=== PATIENT | female | born 1965 | race African-American/Black ===

== ENCOUNTER 2024-10-06 10:56 | Outpatient (CLI) | payer BC, SELFPAY ==
--- NOTE | ~2024-10-06 | XR_ITS ---
Exam: X-ray abdomen/KUB one view. CLINICAL HISTORY: Bilateral kidney stone follow-up. Comparisons: None. TECHNIQUE: 2 images of the abdomen were obtained. FINDINGS: Lung bases are clear. Moderate amount of air and stool in nondilated large bowel. Small amount of air in nondilated small bowel. There is a 1.2 cm probable calcification projecting over the right mid abdomen likely in the right ki dney. There is a 0.8 cm probable calcification projecting of the left mid abdomen likely in the left kidney . There are a few less than 5 mm calcifications in the pelvis which may represent phleboliths, however, a distal ureteral stone or bladder stone or possible. No comparison studies are available. IMPRESSION: 1. Nonspecific, nonobstructive bowel gas pattern with a moderate amount of stool. 2.There is a 1.2 cm probable calcification projecting over the right mid abdomen likely in the right kidney. 3.There is a 0.8 cm probable calcification projecting of the left mid abdomen likely in the left kidn ey. 4.There are a few less than 5 mm calcifications in the pelvis which may represent phleboliths, howeve r, a distal ureteral stone or bladder stone or possible. No comparison studies are available. If continued concern, consider a renal stone CT for further assessment. Reviewed, dictated and finalized at location A. IMPRESSION: 1. Nonspecific, nonobstructive bowel gas pattern with a moderate amount of stoo l. 2.There is a 1.2 cm probable calcification projecting over the right mid abdome n likely in the right kidney. 3.There is a 0.8 cm probable calcification projecting of the left mid abdomen l ikely in the left kidney. 4.There are a few less than 5 mm calcifications in the pelvis which may represe nt phleboliths, however, a distal ureteral stone or bladder stone or possible. No comparison studies are available. If continued concern, consider a renal stone CT for further assessment.
--- OUTSIDE RECORDS SUMMARY | 2024-10-06 11:52 | XMS_ITS | Encounter Summary ---
Author Organization [facility] Address [address] [place] [address] Phone Care Team Providers Care Registry Np Name Role Phone Dianelys Hernandez MD Unavailable [phone] Dianelys Hernandez MD Primary Care Provider [phone] No, Physician Primary Care Provider [phone] Selvin Sims MD Primary Care Provider + No, Physician Primary Care Provider [phone] Selvin Sims MD Primary Care Provider + No, Physician Primary Care Provider [phone] Selvin Sims MD Primary Care Provider + Encounter Details Date Type Department Care Team (Late st [facility] Info) Description 05/16/2019 Ophth Exam [facility] Ophthalmology [address] [place] [address] [place] [id number] Kelsie Adam MD [address] [place] [address] Social History Tobacco Use Types Packs/Day Years Used Date Smoking Tobacco: Never Smokeless Tobacco: Never Alcohol Use Standard Drinks/Week Comments No 0 (1 standard drink = 0.6 oz pur e alcohol) PHQ-2 Answer Date Recorded PHQ-2 Score 6 10/15/2018 Comments No Sex and Gender Information Value Date Recorded Sex Assigned at Not on file 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 Unable to assess 05/19/2019 9:53 AM CDT documented as of this encounter Plan of Treatment Scheduled Procedures Name Priority Associated Diagnoses Date/Ti il COLONOSCOPY Open Access Colon cancer screening COLONOSCOPY Screening for colon cancer COLONOSCOPY Annual physical exam Screening for colon cancer documented as of this encounter Visit Diagnoses Not on filedocumented in this encounter Eye Exam Visual Acuity Right eye Left eye Near cc 20/20 20/20 -1 Pupils Dark Light React APD Right eye 4 2.5 Brisk None Left eye 4 2.5 Brisk None Visual Denis (Counting fingers) Right eye Left eye Full Full Extraocular Movement Right eye Left eye Full Full Neuro/Psych Oriented x3: Yes Mood/Affect: Normal Color Right eye Left eye Ishihara External Exam Right eye Left eye External Normal Normal Fundus Exam Right eye Left eye Disc Grade 0-1 edema Grade 2-3 edema with superior disc hemorrhage C/D Ratio 0.1 0.1 Undilated exam Care Teams Registry Np Relationship Specialty Start Date End Date Dianelys Hernandez MD [facility] [place] [address] PCP - General Internal Medicine 09/04/18 03/05/23 No, Physician PCP - General 03/06/23 05/29/23 Selvin Sims MD [facility] [place] [address] PCP - General Internal Medicine 05/30/23 09/16/23 No, Physician PCP - General 09/17/23 10/07/23 Selvin Sims MD [facility] [place] [address] PCP - General Internal Medicine 10/08/23 12/18/23 No, Physician PCP - General 12/19/23 12/25/23 Selvin Sims MD [address] [place], [place] [address] [place] [address] PCP - General Internal Medicine 12/26/23 Dianelys Hernandez MD [address] [place], [place] [address] [place] [address] 09/04/18 documented as of this encounter
--- OUTSIDE RECORDS SUMMARY | 2024-10-06 11:53 | XMS_ITS | Clinical Summary ---
Author Organization [facility] Address [address] [place] [address] Care Team Providers Care Account Manager Employee Benefits Name Role Phone Helen Gusman MD Primary Care Provider [phone] Carmen Mccallum MD Unavailable [phone] Nathan Romero MD Unavailable [phone] Source Comments [facility],non-owned Affiliates and Associated Physician Practices is amultiple site organization consisting of ambulatory clinics and hospital sitesin [place], [place], [place] and [place]. This disclosure is being madepursuant to the Care Everywhere program and may not contain all information available regarding this patient. Last updated 17.[facility] Allergies Active Allergy Reactions Criticality Noted Date Comments Oxaprozin Urticaria Medium 10/19/2010 Morphine 10/19/2010 Medications * Be aware that medications may not be up to date on this document. Alwaysverify current medications with the patient. lisinopril (PRINIVIL; ZESTRIL) 20 MG tablet Take 20 mg by mouth once daily. Active amLODIPine (NORVASC) 10 MG tablet Take 10 mg by mouth once daily. Active simvastatin (ZOCOR) 20 MG tablet Take 20 mg by mouth at bedtime. Active aspirin EC (ECOTRIN) 81 MG tablet Take 81 mg by mouth once daily. Active INDAPAMIDE PO Take by mouth once daily. Active Calcium Carb-Cholecalci ferol (CALCIUM 600 + D PO) Take by mouth 2 times daily. Active gabapentin (NEURONTIN) 100 MG capsule Take 1 Cap by mouth 3 times daily 60 Cap 0 5 Active traMADol (ULTRAM) 50 MG tablet Take 1 Tab by mouth every 4 hours as needed for Pain 20 Tab 0 5 Active Additional Information Patient not taking.Reported on 02/17/2019 predniSONE (DELTASONE) 20 MG tablet Take 2 Tabs by mouth once daily 10 Tab 0 5 Active naproxen (NAPROSYN) 500 MG tablet Take 1 Tab by mouth 2 times daily as needed for Pain 20 Tab 7 Active pantoprazole EC (PROTONIX) 40 MG tablet Take 1 tablet by mouth once daily 15 tablet 9 Active Active Problems Problem Noted Date Diagnosed Date Thyroid nodule 05/17/2014 Chest pain 10/19/2010 HTN (hypertension) Hyperlipidemia Family History Medical History Relation Name Comments Cancer Maternal Grandmother colon Heart Failure Maternal Grandmother Arthritis - Osteo Mother Cancer Mother lung Hypertension Mother Asthma Sister 1 Rashes/Skin Problems Sister 1 Hypertension Sister 2 Hypertension Sister 3 Relation Name Status Comments Father Maternal Grandmother Mother (Age 65) lung cance r Sister 1 Sister 2 Sister 3 Social History Tobacco Use Types Packs/Day Years Used Date Smoking Tobacco: Never Smokeless Tobacco: Never Alcohol Use Standard Drinks/Week Comments No 0 (1 standard drink = 0.6 oz pur e alcohol) Comments No Sex and Gender Information Value Date Recorded Sex Assigned at Not on file Legal Sex Female 7:45 AM 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 Gender Identity Not on file Sexual Orientation Not on file 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 Not on file Not on file Last Filed Vital Signs Vital Sign Reading Time Taken Comments Blood Pressure 125/80 02/17/2019 3:01 PM 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 Pulse 60 02/17/2019 3:13 PM 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 Temperature 36.4 C (97.5 F) 02/17/2019 10:13 AM 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 Respiratory Rate 16 02/17/2019 3:13 PM 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 Oxygen Saturation 99% 02/17/2019 3:13 PM 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 Inhaled Oxygen Concentration - - Weight 90.7 kg (200 lb) 02/17/2019 10:13 AM 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 Height 157.5 cm (5' 2) 02/17/2019 10:13 AM 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 Body Mass Index 36.58 02/17/2019 10:13 AM 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 Plan of Treatment Health Maintenance Due Date Last Done Comments COLOGUARD (AGES 45-75) - COLON CA SCREENING 1965 CT COLONOGRAPHY - COLON CA SCREENING 1965 FIT - COLON CA SCREENING 1965 FLEX SIG - COLON CA SCREENING 1965 MAMMOGRAM 1965 HIV SCREENING 1980 HEPATITIS C SCREENING 04/22/1983 DTAP/TDAP/TD VACCINES (1 - Tdap) 1984 HEPATITIS B VACCINE (1 of 3 - 19+ 3-dose series) 1984 PNEUMOCOCCAL VACCINE 50+ (1 of 1 - PCV) 04/27/2015 ZOSTER VACCINE (1 of 2) 04/27/2015 COVID-19 VACCINE (1 - ) 10/27/2023 DEPRESSION SCREENING 02/26/2024 INFLUENZA VACCINE (#1) 2024 9, 12/26/2017, 11/27/2017, Additional history exists COLON MONITORING 12/30/2024 12/30/2014, 06/2014, 12/30/2014 COLONOSCOPY - COLON CA SCREENING 12/30/2024 12/30/2014, 12/30/2014, 12/30/2014 Colorectal Cancer Screening 12/30/2024 HIB VACCINE Aged Out No longer eligi ble based on patient's age to complete this topic HPV VACCINE Aged Out No longer eligi ble based on patient's age to complete this topic MENINGOCOCCAL (Group B) VACCINE SHARED DECISION-MAKING Aged Out No longer eligible based on patient's age to complete this topic MENINGOCOCCAL GROUPS A/C/Y/W VACCINE Aged Out No longer eligible based on patient's age to complete this topic Procedures Procedure Name Priority Date/Time Associated Diagnosis Comments ENDOSCOPY, COLON, SCREENING Routine 12/30/2014 2:52 PM 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 from Last 3 Months or Most Recently Relevant to Health Maintenance Results * ENDOSCOPY, COLON, SCREENING (12/30/2014 2:52 PM 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) Report Endoscopy POC _ Patient Name: Jose Mckenzie Procedure Date: 12/30/2014 2:52 PM Date of : 1965 Admit Type: Outpatient Age: 49 Gender: Female Attending MD: Ramesh Lujan MD _ Procedure: Colonoscopy Indications: Screening for colorectal malignant neoplasm, Family history of colon cancer in a first-degree relative Providers: Ramesh Lujan MD (Doctor), Elizabeth Whitten RN, Jake Palacios, Veterinary Science Teacher Referring MD: Helen Gusman MD (Referring MD) Medicines: Monitored Anesthesia Care Complications: No immediate complications. _ Procedure: Pre-Anesthesia Assessment: - ASA Grade Assessment: II - A patient with mild systemic disease. - Airway Examination: Mallampati Class I (tonsillar pillars visualized). After I obtained informed consent, the scope was passed under direct vision. Throughout the procedure, the patient's blood pressure, pulse, and oxygen saturations were monitored continuously. The Colonoscope was introduced through the anus and advanced to the cecum, identified by appendiceal orifice and ileocecal valve. The colonoscopy was performed without difficulty. The patient tolerated the procedure well. The quality of the bowel preparation was good. Impression: - Diverticulosis. - One 6 mm polyp in the sigmoid colon. Resected and retrieved. Findings: Diverticula were found in the colon. A 6 mm polyp was found in the sigmoid colon. The polyp was sessile. The polyp was removed with a cold biopsy forceps. Resection and retrieval were complete. Estimated blood loss: none. _ Recommendation: - Repeat colonoscopy in 5-10 years for surveillance based on pathology results. Procedure Code(s): --- Professional --- 46255, Colonoscopy, flexible; with biopsy, single or multiple --- Technical --- 99142, Colonoscopy, flexible; with biopsy, single or multiple Diagnosis Code(s): --- Professional --- Z12.11, Encounter for screening for malignant neoplasm of colon K57.30, Diverticulosis of large intestine without perforation or abscess without bleeding D12.5, Benign neoplasm of sigmoid colon Z80.0, Family history of malignant neoplasm of digestive organs --- Technical --- Z12.11, Encounter for screening for malignant neoplasm of colon K57.30, Diverticulosis of large intestine without perforation or abscess without bleeding D12.5, Benign neoplasm of sigmoid colon Z80.0, Family history of malignant neoplasm of digestive organs CPT copyright 2014 [employer]. All rights reserved. The codes documented in this report are preliminary and upon certified coder review may be revised to meet current compliance requirements. Ramesh Lujan MD 12/30/2014 3:19 PM This report has been signed electronically. Number of Addenda: 0 Note Initiated On: 12/30/2014 2:52 PM [facility] ENDOSCOPY 12/30/2014 2:52 PM 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 us Ramesh Lujan MD GI PROCEDURE ORDERABLES Edited R esult - Final HC ENDOSCOPY from Last 3 Months or Most Recently Relevant to Health Maintenance Insurance [facility] Advance Directives * FULL RESUSCITATION (Latest Code Status on File) Date Activated Date Inactivated Comments 10/19/2010 11:59 PM 10/21/2010 5:46 AM Care Teams Account Manager Employee Benefits Relationship Specialty Start Date End Date Helen Gusman MD [address] [place] [address] PCP - General Internal Medicine 10/12/13 Carmen Mccallum MD [address] [facility], [address] [place] [id number] Endocrinology 05/17/14 Nathan Romero MD [address] [facility] [address] [place] [address] Cardiovascular Disease 02/14/15
--- OUTSIDE RECORDS SUMMARY | 2024-10-06 11:53 | XMS_ITS | Clinical Summary ---
Author Organization [facility] Address [address] [place] [id number] Care Team Providers Care Equipment Maint Tech Name Role Phone Dianelys Hernandez MD Unavailable [phone] Selvin Sims MD Primary Care Provider + Allergies Active Allergy Reactions Criticality Noted Date Comments Ud-Rn-[id number]-[id number] Morphine Rash Medium 03/11/2013 Rash Oxaprozin Rash Medium 03/11/2013 Rash Medications multivitamin capsule Take 1 capsule by mouth daily Active calcium carbonate-vitamin D3 1,250 mg (500 mg elemental)-125 unit per tablet Take 1 tablet by mouth daily Active aspirin 81 mg enteric coated tablet Take 1 tablet (81 mg total) by mouth daily 30 tablet 1 09/08/19 23 Active fluticasone propionate (FLONASE) 50 mcg/actuation nasal spray Administer 2 sprays into each nostril daily 3 each 4 03/21/19 24 Active dicyclomine (BENTYL) 10 mg capsule Take 1 capsule (10 mg total) by mouth 3 (three) times a day as needed (abd cramps) 60 capsule 09/01/19 24 Active estradioL (ESTRACE) 0.01 % (0.1 mg/gram) vaginal creamIndications:A trophic Vaginitis associated with Menopause Apply nightly to vagina for 1 week, then Saturday// Saturday 42.5 g 11/05/19 24 Active amLODIPine (NORVASC) 10 mg tabletIndications: Hypertension, essential Take 1 tablet (10 mg total) by mouth daily 90 tablet 3 12/30/19 24 025 Active cholecalciferol (VITAMIN D-3) 2000 unit tablet Take 1 tablet (2,000 Units total) by mouth daily 90 tablet 3 12/30/19 24 Active simvastatin (ZOCOR) 20 mg tabletIndications: Mixed hyperlipidemia Take 1 tablet (20 mg total) by mouth nightly 90 tablet 3 12/30/19 24 025 Active potassium chloride ER (KLOR-CON) 20 mEq CR tabletIndications: Hypokalemia Take 1 tablet (20 mEq total) by mouth 2 (two) times a day 180 tablet 3 12/30/19 24 Active irbesartan (AVAPRO) 300 mg tabletIndications: Hypertension, essential Take 1 tablet (300 mg total) by mouth nightly 90 tablet 3 12/30/19 24 Active acetaZOLAMIDE ER (DIAMOX SEQUAL) 500 mg capsule Take 1 capsule by mouth twice daily. 180 capsule 06/30/[address] (CYMBALTA) 20 mg capsule Take 1 capsule (20 mg total) by mouth daily 30 capsule 11 09/22/[address] (CYMBALTA) 20 mg capsule Take 1 capsule (20 mg total) by mouth daily 30 capsule 11 01/08/20 24 025 Discontin ued(Reord er) Active Problems Problem Noted Date Diagnosed Date Swelling of both lower extremities 06/17/2024 Assessment & Plan (06/17/2024 8:01 AM CDT): Acute, not well controlled Labs and imaging ordered today Discussed adequate water intake - Order pro BNP to assess cardiac function. - Order ultrasound of legs to rule out deep vein thrombosis. - Recommend use of compression stockings. Bilateral kidney stones 06/15/2024 Assessment & Plan (06/17/2024 8:01 AM CDT): Chronic Noted on imaging previously Discussed foods to avoid to prevent kidney stones based off of history of kidney stones Imaging ordered to evaluate further based on continued abdominal pain ED precautions reviewed with patient today Screening for colorectal cancer 08/14/2023 Sinus congestion 02/07/2023 Assessment & Plan (02/07/2023 9:39 AM SENIOR DENTIST): Started over the last weekend She has tried coricidin Take claritin/zyrtec/romero in the morning Flonase at bedtime Use the saline rinses/netipot in nose twice daily and as needed If symptoms increase or persist beyond 10 days, may need an antibiotic so reach out if no improvement Acute pain of right knee 07/19/2022 Assessment & Plan (08/26/2022 7:27 PM CDT): X-ray in ER on 06/22 showed: Tricompartmental degenerative changes of the right knee without definite evidence of acute displaced fracture or dislocation. There is a small suprapatellar joint effusion. Treatment consists of rest, ice, compression, and elevation. Medications used to treat arthritis include NSAIDs and analgesics such as ibuprofen and tylenol. Topical products such as voltaren gel and compression devices are also beneficial. Physical therapy will also be able to provide further guidance on treatments. If your pain persists, orthopedics can also advise and may suggest steroid injections or surgery. Referral to ortho F/u 6 wks Assessment & Plan (07/19/2022 8:37 AM CDT): X-ray in ER on 06/22 showed: Tricompartmental degenerative changes of the right knee without definite evidence of acute displaced fracture or dislocation. There is a small suprapatellar joint effusion. Treatment consists of rest, ice, compression, and elevation. Medications used to treat arthritis include NSAIDs and analgesics such as ibuprofen and tylenol. Topical products such as voltaren gel and compression devices are also beneficial. Physical therapy will also be able to provide further guidance on treatments. If your pain persists, orthopedics can also advise and may suggest steroid injections or surgery. Referral to ortho F/u 6 wks Subclinical hyperthyroidism 11/20/2021 Piriformis syndrome of left side 11/06/2021 Chronic left-sided low back pain without sciatic a 11/06/2021 Trochanteric bursitis of left hip 11/06/2021 Lumbar degenerative disc disease 04/04/2021 Assessment & Plan (04/04/2021 1:14 PM SENIOR DENTIST): She has been referred to ortho Symptoms fluctuate and flare and shoots into her left hip and down her leg She will be evaluated by ortho Class 2 severe obesity due t o excess calories with serious comorbidity and body mass index (BMI) of 36.0 to 36.9 in adult 12/15/2020 Assessment & Plan (06/17/2024 7:53 AM CDT): Encouraged healthy diet and exercise through low sodium, low carbohydrate diet, with exercise. Assessment & Plan (02/07/2023 8:50 AM SENIOR DENTIST): Encouraged healthy diet and exercise through low sodium, low carbohydrate diet, with exercise. Assessment & Plan (07/19/2022 8:32 AM CDT): Encouraged healthy diet and exercise through low sodium, low carbohydrate diet, with exercise. Assessment & Plan (10/26/2021 9:14 AM CDT): Encouraged healthy diet and exercise through low sodium, low carbohydrate diet, with exercise. Assessment & Plan (08/11/2021 11:34 AM CDT): Encouraged healthy diet and exercise through low sodium, low carbohydrate diet, with exercise. Assessment & Plan (04/04/2021 1:14 PM SENIOR DENTIST): Encouraged healthy diet and exercise through low sodium, low carbohydrate diet, with exercise. Assessment & Plan (12/15/2020 10:33 AM CDT): Encouraged healthy diet and exercise through low sodium, low carbohydrate diet, with exercise. AP (abdominal pain) 11/02/2020 Assessment & Plan (09/21/2024 9:25 AM CDT): Chronic, poorly controlled 2. Start duloxetine 20mg daily 3. Encourage GI follow up 4. 1 month follow up Assessment & Plan (11/02/2020 2:05 PM CDT): Etiology of abdominal pain is unclear. Of note blood was noted but no vaginal or rectal bleeding on exam and urinalysis does not indicate hematuria Persistent episodic lower abdominal cramipin need to consider gastroenteritis or colitis. Need to evaluate for image processing engineer etiology and recommend that she see her lumber material handler Migraine without aura and wi thout status migrainosus, not intractable 01/15/2020 Papilledema 09/14/2019 Pseudotumor cerebri 07/09/2019 Assessment & Plan (01/13/2021 10:14 AM SENIOR DENTIST): Doing well. No active edema today. OCT nerve stable avg RNFL thickness 109 OU today. Currently on diamox 1 g daily, which she is tolerating. Plan: -Continue diamox 1 g daily -Encouraged weight loss -Discussed headache hygiene -RTC 6 mo with OCT nerve OU, sooner PRN. Can likely taper diamox at next visit if stable and still no edema. Assessment & Plan (10/12/2019 12:43 PM CDT): Managed by ophthalmology Symptoms are stable on Diamox 1,000 mg twice daily Assessment & Plan (07/09/2019 4:43 PM CDT): Marixa Mckenzie presents for [facility] evaluation. She initially presented to her local [facility] in April 2019 due to headaches, TVOs and blurry vision, without pulsatile tinnitus or diplopia. She was then sent to the [facility] ED due to disc edema OS>>OD noted by her local [facility]. In the ED, MRI/MRV Brain and Orbits w wo contrast was negative for dural venous sinus thrombosis or intracranial mass. She was started on Diamox 500mg BID, which was later increased to 1000mg BID due to recurrent headache and TVOs. Lumbar puncture showed elevated opening pressure. She gained ~45lb in the last year. Today she continues to have TVOs without headache. She has some numbness/tingling of hands and feet but is otherwise tolerating Diamox. On examination today she has excellent VA, normal color vision, asymmetric optic disc edema OS>>OD. OCT optic nerve shows bilateral disc edema OS>>OD, normal OCT macula without macular edema, normal GCC analysis. HVF today demonstrate enlarged blind spot OS, normal OD. Review of neuroimaging from April 2019 shows posterior globe flattening, empty sella, optic nerve sheath tortuosity, without significant dural venous sinus stenosis. Thought it is less typical for post-menopausal women to have IIH, features favoring this diagnosis include gender, body habitus, and her otherwise normal examination and imaging. Recommend increasing dose of Diamox to 1500mg BID since she has persistent edema. She was counseled that in most cases, weight loss in combination with Diamox results in greatest success of preventing vision loss. Recommended that she discuss options/strategies with her PCP and consider a program like Weight Watchers. Return in 8-10 weeks with HVF 24-2, OCT ON, OCT macula with GCC analysis Depression 05/25/2019 Assessment & Plan (10/12/2019 12:00 PM CDT): Information provided on depression Symptoms are stable on no medication Assessment & Plan (07/01/2019 4:38 PM CDT): She never started lexapro but is not feeling depressed. Symptoms controlled on no medication. Assessment & Plan (05/25/2019 12:18 PM CDT): 10 mg Lexapro will be started Information provided on stress/anxiety/depression Will reassess in 4-6 weeks. Gastroesophageal reflux disease without esophagi tis 05/25/2019 Assessment & Plan (10/12/2019 12:47 PM CDT): Symptoms improve with pantoprazole Medication refilled today Encourage low acidic diet Assessment & Plan (05/25/2019 12:09 PM CDT): Begin taking Prevacid and follow up if no relief of symptoms Decrease high acidic foods like dark soda, coffee, hot sauce, fried foods, tomato based products, peppermint, chocolate, cucumber seeds. 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 MRI brain w,w/o and MRV unremarkable, and was found to have elevated ICP on lumbar puncture. Patient was discharged on acetazolamide 500 mg bid. She has an upcoming appointment in neuro-ophthalmology with Dr. Ogden on 05/18/19. Likely etiology of spironolactone side effect, but cannot r/o IIH. Today with asymmetric optic nerve edema OS>>OD, with superior disc hemorrhage OS. Disc photos taken today for documentation. Central vision intact, no APD (checked by electronic development technician, patient dilated when I saw her). No headaches or pulsatile tinnitus currently. Patient endorses some mild tingling of her feet when specifically asked. Plan to continue diamox 500mg bid, and patient will follow up as scheduled on 05/18/[address] Ogden with HVF and OCT. Vitamin D deficiency 01/02/2019 Assessment & Plan (12/27/2023 2:57 PM CDT): 1. Chronic, poorly controlled at last check 2. Will continue vitamin-D supplementation and repeat vitamin-D Assessment & Plan (01/02/2019 11:03 AM SENIOR DENTIST): The results from your labs show low Vitamin D levels. Please also increase foods rich in vitamin D in your diet such as milk, almond milk, cheese, yogurt, salmon and mushrooms. Please begin taking an over the counter vitamin D 2,000 iu supplement daily. 10-15 minutes of sunlight daily also aids in vitamin D production. Hypokalemia 01/02/2019 Assessment & Plan (12/27/2023 2:56 PM CDT): 1. Chronic, worsening at last check 2. Will repeat potassium today and continue her current supplementation Assessment & Plan (08/11/2021 1:17 PM CDT): She has been stable on 20 mEq K+ daily BMP ordered today Assessment & Plan (12/15/2020 10:53 AM CDT): Was increased to 1 tablet three times a day for serum potassium 2.9 at appt in October but she has been taking 2 tablets three times a day by mistake Need to check potassium level today Decrease amount of potassium supplement to 1 tablet three time daily Assessment & Plan (10/20/2020 10:15 AM CDT): On 20 mEq BID Labs ordered today Assessment & Plan (05/25/2019 12:17 PM CDT): BMP ordered today WNL April 2019 Assessment & Plan (01/02/2019 10:59 AM SENIOR DENTIST): Will recheck level today Hypertension, essential 01/02/2019 Assessment & Plan (06/17/2024 7:58 AM CDT): Chronic, elevated today Plan to continue to check blood pressure readings at home - Education regarding HTN urgency and emergency reviewed today and importance of seeking immediate medical attention - if blood pressure readings remain >130/80, plan to adjust medication accordingly, possible referral to Dr Fuller for further eval and intervention of hypertension Assessment & Plan (05/30/2023 9:35 AM CDT): SBP marginal today. She has not taken her medications today. Her BP is reflective of that. Continue Norvasc 10 mg daily and irbesartan 300 mg daily. I asked that she monitor this at home and let us know if her BP is over 140 on her medications. Assessment & Plan (02/07/2023 1:11 PM SENIOR DENTIST): On diamox 500 mg once daily, amlodipine 10 mg, irbesartan 300 mg daily She didn't continue metoprolol XL 25 mg because she ran out BP stable without metoprolol Continue current treatment regimen Dietary sodium restriction Weight loss Regular aerobic exercise F/u 3 mo Assessment & Plan (08/23/2022 10:58 AM CDT): On diamox 500 mg now once daily, amlodipine 10 mg, irbesartan 300 mg daily BP elevated last couple of appointments Continue current treatment regimen Dietary sodium restriction Weight loss Regular aerobic exercise Continue current medications and add metoprolol XL 25 mg F/u 1 mo Assessment & Plan (07/22/2022 1:13 PM CDT): On diamox 500 mg now once daily, amlodipine 10 mg, irbesartan 300 mg daily BP elevated but also did not take her medications yet today and she would have taken them by now so no medication adjustments will be made Continue current treatment regimen Dietary sodium restriction Weight loss Regular aerobic exercise Continue current medications F/u 1 mo Assessment & Plan (01/25/2022 9:26 AM SENIOR DENTIST): On diamox 500 mg now once daily, amlodipine 10 mg, irbesartan 150 mg daily BP has increased when she discontinued her diamox and she started retaining more fluid so she recently restarted back to taking it once a day three days ago BP not well controlled Increase irbesartan to 300 mg daily, continue amlodipine 10 mg daily and diamox 500 mg daily Continue current treatment regimen Dietary sodium restriction Weight loss Regular aerobic exercise Continue current medications Blood pressure will be reassessed one month Assessment & Plan (10/26/2021 9:15 AM CDT): On diamox 500 mg BID, amlodipine 10 mg, irbesartan 150 mg daily Hypertension is improving with treatment Continue current treatment regimen Dietary sodium restriction Weight loss Regular aerobic exercise Continue current medications Blood pressure will be reassessed at the next regular appointment Assessment & Plan (08/11/2021 11:28 AM CDT): On diamox 500 mg BID, amlodipine 10 mg, irbesartan 150 mg daily Hypertension is improving with treatment Continue current treatment regimen Dietary sodium restriction Weight loss Regular aerobic exercise Continue current medications Blood pressure will be reassessed at the next regular appointment Assessment & Plan (04/04/2021 1:00 PM SENIOR DENTIST): On diamox 500 mg BID, amlodipine 10 mg, irbesartan 150 mg daily Hypertension is improving with treatment Continue current treatment regimen Dietary sodium restriction Weight loss Regular aerobic exercise Continue current medications Blood pressure will be reassessed at the next regular appointment Assessment & Plan (12/15/2020 10:52 AM CDT): On diamox 500 mg bid, amlodipine 5 mg, and irbesartan 150 mg daily BP elevated today on 3 readings and 150/100 Increase amlodipine to 10 mg daily, continue diamox and irbesartan Continue current treatment regimen Dietary sodium restriction Weight loss Regular aerobic exercise Blood pressure will be reassessed one month Assessment & Plan (07/19/2020 5:31 PM CDT): Hypertension has improved Continue low salt diet Encourage aerobic exercise Current medication will be continued Will reassess at the next office visit Assessment & Plan (03/22/2020 4:41 PM SENIOR DENTIST): Hypertension has improved with lifestyle changes and medication Blood Pressure Follow-up: Lifestyle modifications education provided on sodium reduction, increase physical activity and weight reduction Current medication will be continued Will reassess at the next office visit. Assessment & Plan (10/12/2019 12:44 PM CDT): BP is increased Add Amlodipine 5 mg to Olmesartan 40 mg Dietary sodium restriction Weight loss Regular aerobic exercise Blood pressure will be reassessed one month Assessment & Plan (07/10/2019 1:41 PM CDT): Hypertension is improving with treatment Continue current treatment regimen Dietary sodium restriction Weight loss Regular aerobic exercise Continue current medications Blood pressure will be reassessed at the next regular appointment Assessment & Plan (07/01/2019 4:39 PM CDT): Home bp reading elevated Dietary sodium restriction Weight loss Regular aerobic exercise BP will be assessed in office Will make earliest appt and complete annual PE, have pt bring home bp cuff Assessment & Plan (05/25/2019 12:02 PM CDT): BP is elevated Increase lisinopril to 40 mg Dietary sodium restriction Weight loss Regular aerobic exercise Blood pressure will be reassessed 1 mo Assessment & Plan (01/02/2019 11:02 AM SENIOR DENTIST): Hypertension is improving with treatment Continue current treatment regimen Dietary sodium restriction Weight loss Regular aerobic exercise Continue current medications Blood pressure will be reassessed at the next regular appointment History of hysterectomy 03/03/2018 Assessment & Plan (03/03/2018 10:08 AM SENIOR DENTIST): Dr. Elizabeth Nicholson is her OBGYN and she sees her bi-yearly. Chronic left hip pain 03/03/2018 Assessment & Plan (04/04/2021 1:01 PM SENIOR DENTIST): She has been referred to ortho Currently, she is taking flexeril 5 mg TID PRN and ibuprofen Information has been provided for ortho and recommend PT also Assessment & Plan (12/15/2020 2:17 PM CDT): Has been referred to ortho in the past Currently taking 7.5 mg meloxicam and tylenol daily Pain worsens with activity and can get up to an 8/10 Would like to see ortho before getting PT Referral to ortho Assessment & Plan (03/03/2018 11:10 AM SENIOR DENTIST): X-ray ordered today Referral to ortho Mixed hyperlipidemia 03/03/2018 Assessment & Plan (06/17/2024 7:59 AM CDT): Chronic, stable Continue simvastatin Assessment & Plan (02/07/2023 8:52 AM SENIOR DENTIST): On simvastatin 20 mg daily Recommend low fat, low cholesterol diet such as the mediterranean diet Recommend regular physical activity such as brisk walking at least 30 minutes 5 days per week Lipid levels at goal at last check Continue pharmacotherapy as ordered Lipid levels will be reassessed in 4 mo Assessment & Plan (07/19/2022 8:32 AM CDT): On simvastatin 20 mg daily Recommend low fat, low cholesterol diet such as the mediterranean diet Recommend regular physical activity such as brisk walking at least 30 minutes 5 days per week Lipid levels at goal at last check Continue pharmacotherapy as ordered Lipid levels will be reassessed in 4 mo Assessment & Plan (10/26/2021 9:14 AM CDT): On simvastatin 20 mg daily Recommend low fat, low cholesterol diet such as the mediterranean diet Recommend regular physical activity such as brisk walking at least 30 minutes 5 days per week Lipid levels at goal at last check Continue pharmacotherapy as ordered Lipid levels will be reassessed in 4 mo Assessment & Plan (08/11/2021 11:35 AM CDT): On simvastatin 20 mg daily Recommend low fat, low cholesterol diet such as the mediterranean diet Recommend regular physical activity such as brisk walking at least 30 minutes 5 days per week Lipid levels at goal at last check Continue pharmacotherapy as ordered Lipid levels will be reassessed in 4 mo Assessment & Plan (04/04/2021 1:00 PM SENIOR DENTIST): On simvastatin 20 mg daily Recommend low fat, low cholesterol diet such as the mediterranean diet Recommend regular physical activity such as brisk walking at least 30 minutes 5 days per week Lipid levels ordered Continue pharmacotherapy as ordered Lipid levels will be reassessed in 4 mo Assessment & Plan (12/15/2020 10:10 AM CDT): On simvastatin 20 mg daily Lipid levels normal on 10/20 Recommend low fat, low cholesterol diet such as the mediterranean diet Recommend regular physical activity such as brisk walking at least 30 minutes 5 days per week Continue pharmacotherapy as ordered Lipid levels will be reassessed in 4 mo Assessment & Plan (10/20/2020 10:15 AM CDT): Recommend low fat, low cholesterol diet such as the mediterranean diet Recommend regular physical activity such as brisk walking at least 30 minutes 5 days per week Lipid levels ordered Continue pharmacotherapy as ordered Lipid levels will be reassessed in 4 mo Assessment & Plan (07/19/2020 5:30 PM CDT): Lipids have improved with diet and medication Current medication will be continued Assessment & Plan (03/22/2020 4:40 PM SENIOR DENTIST): Lipids have improved with lifestyle changes and medication Continue low fat diet Current medication will be continued Will reassess at the next office visit Assessment & Plan (01/08/2020 12:59 PM SENIOR DENTIST): Lipids have improved with lifestyle changes and medication Current medication will be continued Assessment & Plan (10/12/2019 12:03 PM CDT): Recommend low fat, low cholesterol diet such as the mediterranean diet Recommend regular physical activity such as brisk walking at least 30 minutes 5 days per week Lipid levels ordered Continue pharmacotherapy as ordered Lipid levels will be reassessed in 6 mo Assessment & Plan (03/03/2018 11:10 AM SENIOR DENTIST): Lipid profile labs ordered today Thyroid nodule 05/17/2014 Chest pain 10/19/2010 Assessment & Plan (05/30/2023 9:32 AM CDT): Atypical with negative DSE in August 2022. EKG with no acute changes. No further work up at this time. Continue Norvasc 10 mg daily, ASA 81 mg daily, irbesartan 300 mg daily and Crestor 20 mg daily Resolved Problems Problem Noted Date Diagnosed Date Resolved Date Annual physical exam 10/20/2020 024 Assessment & Plan (02/07/2023 8:50 AM SENIOR DENTIST): Encourage monthly self breast exams, every 6 mo dental, annual eye exams. Encourage increased vegetable, fruit, decreased salt, saturated fat, processed foods diet with increased physical activity. Labs ordered. Assessment & Plan (10/26/2021 9:12 AM CDT): Encourage monthly self breast exams, every 6 mo dental, annual eye exams. Encourage increased vegetable, fruit, decreased salt, saturated fat, processed foods diet with increased physical activity. Labs ordered. Assessment & Plan (10/20/2020 10:21 AM CDT): Encourage monthly self breast exams, every 6 mo dental, annual eye exams. Encourage increased vegetable, fruit, decreased salt, saturated fat, processed foods diet with increased physical activity. Labs ordered. HTN (hypertension) 01/08/2020 2 Assessment & Plan (10/20/2020 10:14 AM CDT): Hypertension is improving with treatment Continue current treatment regimen Dietary sodium restriction Weight loss Regular aerobic exercise Continue current medications Blood pressure will be reassessed at the next regular appointment Assessment & Plan (01/08/2020 12:58 PM SENIOR DENTIST): BP has been well controlled on the current medication Blood Pressure Follow-up: Lifestyle modifications education provided on sodium reduction, increase physical activity and weight reduction Current medication will be continued. Will reassess in 4 months BMI 31.0-31.9,adult 03/03/2018 12/26/19 24 Assessment & Plan (01/26/2022 6:22 AM SENIOR DENTIST): Encouraged healthy diet and exercise through low sodium, low carbohydrate diet, with exercise. Assessment & Plan (10/20/2020 10:14 AM CDT): Encouraged healthy diet and exercise through low sodium, low carbohydrate diet, with exercise. Assessment & Plan (10/12/2019 12:23 PM CDT): Encouraged healthy diet and exercise through low sodium, low carbohydrate diet, with exercise. Assessment & Plan (07/10/2019 1:40 PM CDT): Encouraged healthy diet and exercise through low sodium, low carbohydrate diet, with exercise. Assessment & Plan (07/01/2019 4:37 PM CDT): Encouraged healthy diet and exercise through low sodium, low carbohydrate diet, with exercise. Assessment & Plan (05/25/2019 12:04 PM CDT): Encouraged healthy diet and exercise through low sodium, low carbohydrate diet, with exercise. Assessment & Plan (01/02/2019 11:00 AM SENIOR DENTIST): Encouraged healthy diet and exercise through low sodium, low carbohydrate diet, with exercise. Assessment & Plan (03/03/2018 11:19 AM SENIOR DENTIST): Discussed the mediterranean diet Discussed increasing water intake Recommended increasing physical activity, vegetables, and fruit intake Encounters Date Type Department Care Team Description 09/21/2024 9:00 AM CDT Office Visit [facility] at the [address] [place] [address] Sherrell Ray, ANH Abdominal pain, unspecified abdominal location (Primary Dx); Lower extremity edema; Pain in both hands 07/13/2024 10:19 AM CDT - 07/13/2024 11:59 PM CDT Hospital Encounter [facility] [place] [address] Swelling of both lower extremities Discharge Disposition: Discharge to home or self care from Last 3 Months Immunizations Immunization Administration Dates Next Due Influenza, Quadrivalent, Spl it, Preservative Free, Intramuscular 01/25/2022,12/15/2020,01/08/2020,11/27 Influenza, Trivalent, Preser vative Free, Intramuscular 12/26/2023 Influenza, Unspecified 11/26/2022,12/23/2018,02/2017 Pfizer SARS-CoV-2 Monovalent Vaccination (12+ Yrs) PURPLE 03/14/2021,05/27/2020,05/06/2020 Tdap 10/26/2021 Surgical History Surgery Date Site/Laterality Comments HYSTERECTOMY ANKLE SURGERY 02/25/1993 - 02/24/1994 SECTION 3x ANKLE FRACTURE SURGERY COLONOSCOPY Medical History Medical History Date Comments Hypertension High cholesterol Urolithiasis History of transfusion Lumbar facet arthropathy DDD (degenerative disc disease), lumbar Anterolisthesis of lumbar spine 05/12/2021 Grade 1 L4 on L5 Leg swelling Ligamentum flavum hypertrophy, lumbar 03/22/2022 Foraminal stenosis of lumbar region 03/22/2022 Colon polyp Family History Medical History Relation Name Comments No Known Problems Father Cataracts Maternal Grandmother Colon cancer Maternal Grandmother Arthritis Mother Cancer Mother Hypertension Mother Family history of hypertension - (Added by TW Conv) Lung cancer Mother Family history of lung cancer - (Added by TW Conv) Hypertension Other Family history of hypertension - (Added by TW Conv) Relation Name Status Comments Father Maternal Grandmother Mother Other Social History Tobacco Use Types Packs/Day Years Used Date Smoking Tobacco: Never Smokeless Tobacco: Never Tobacco Cessation:Counseling Given: Not Answered Alcohol Use Standard Drinks/Week Comments No 0 (1 standard drink = 0.6 oz pur e alcohol) AUDIT-C Answer Date Recorded Q1: How often do you have a drink containing alc ohol? Never 09/27/2023 Average Number of Drinks Not on file Frequency of Binge Drinking Not on file 03/2023 PHQ-2 Answer Date Recorded PHQ-2 Total Score (If total score is 3 or more points, staff should administer the PHQ-9) 0 09/21/2024 [facility] [place] of Occupat ional Health - Occupational Stress Questionnaire Answer Date Recorded Do you feel stress - tense, restless, nervous, or anxious, or unable to sleep at night because your mind is troubled all the time - these days? Not at all 12/15/2020 Exercise Vital Sign Answer Date Recorde d On average, how many days pe r week do you engage in moderate to strenuous exercise (like a brisk walk)? 2 days 10/20/2020 On average, how many minutes do you engage in exercise at this level? 30 min 10/20/2020 Personal Safety Answer Date Recorded Have you ever been in or are you currently in a harmful physical or emotional relationship or is someone making you feel afraid or unsafe? Denies 12/04/2023 Comments No Sex and Gender Information Value Date Recorded Sex Assigned at Not on file Legal Sex Female 7:21 PM SENIOR DENTIST Gender Identity Not on file Sexual Orientation Not on file Occupation Industry Job Start Date Job End Date [employer] Not on file Not on file Not on file retired from [employer] Not on file Not on file Not on file Obstetrics History Para Term AB IAB SAB Ectopic Multiple Livin g Live Births 6 3 3 1 2 3 Date Outcome GA Total Labor Labor/2nd/3rd Weight Sex Type Anes PTL Pao A1 A5 Name Clin Para Para Para SAB SAB IAB Last Filed Vital Signs Vital Sign Reading Time Taken Comments Blood Pressure 126/84 09/21/2024 8:44 AM CDT Pulse 75 09/21/2024 8:44 AM CDT Temperature 36.3 C (97.3 F) 01/08/2024 1:41 PM SENIOR DENTIST Respiratory Rate 16 09/21/2024 8:44 AM CDT Oxygen Saturation 99% 09/21/2024 8:44 AM CDT Inhaled Oxygen Concentration - - Weight 87.5 kg (193 lb) 09/21/2024 8:44 AM CDT Height 157.5 cm (5' 2) 09/21/2024 8:44 AM CDT Body Mass Index 35.3 09/21/2024 8:44 AM CDT Plan of Treatment Scheduled Procedures Name Priority Associated Diagnoses Date/Ti me COLONOSCOPY Open Access Colon cancer screening COLONOSCOPY Screening for colon cancer COLONOSCOPY Annual physical exam Screening for colon cancer Health Maintenance Due Date Last Done Comments Hepatitis C Screening 1965 Hepatitis B Screening 04/27/1983 Zoster Vaccine (1 of 2) 04/27/2015 Covid-19 Vaccine ( season) 2023 03/14/2021, 05/27/2020, 05/06/2020 Influenza Vaccine (#1) 2024 , 11/26/2022, 01/25/2022, Additional history exists Regular Well Visit/Exam 18-64 12/25/2024 12/26/2023, 02/07/2023, 10/26/2021, Additional history exists Breast Cancer Screening-Mammogram 06/06/2025 06/06/2024, 02/28/2023, 02/22/2022, Additional history exists Depression Screening 09/21/2025 09/21/2024, 07/05/2023, 02/07/2023, Additional history exists DTaP/Tdap/Td Vaccine (2 - Td or Tdap) 10/27/2031 10/26/2021 Colon Cancer Screening-Colonoscopy 09/26/2033 09/27/2023, 01/27/2021, 12/30/2014 Colon Cancer Screening-CT Colonography Discontinued 09/27/2023, 01/27/2021, 12/30/2014 Colon Cancer Screening-DNA Stool Discontinued 09/27/2023, 01/27/2021, 12/30/2014 Colon Cancer Screening-FIT Discontinued 09/26, 01/27/2021, 12/30/2014 Colon Cancer Screening-Sigmoidoscopy Discontinued 09/27/2023, 01/27/2021, 12/30/2014 Pneumococcal vaccine <65 Aged Out No longer eligible based on patient's age to complete this topic Procedures Procedure Name Priority Date/Time Associated Diagnosis Comments US VEIN DUPLEX LOWER EXTREMITY BILATERAL COMPLETE Schedule DANNY, Read DANNY (Appt Today, Awaiting Results) 07/13/2024 10:57 AM CDT Swelling of both lower extremities SCREENING MAMMOGRAM BILATERAL W MAGAN Schedule Routine, Read Routine (OP Routine) 06/06/2024 7:23 AM CDT Screening mammogram, encounter for COLONOSCOPY 09/27/2023 11:16 AM CDT from Last 3 Months or Most Recently Relevant to Health Maintenance Results * US Vein Duplex Lower Extremity Bilateral Complete (07/13/2024 10:57 AM CDT) Anatomical Region Laterality Modality Vascular Bilateral Ultrasound 07/13/2024 10:3 0 AM CDT Narrative 07/14/2024 11:06 AM CDT Lower Extremity Venous Report Patient Name: MARIXA MCKENZIE L : 1965 (59y 2m) Gender: F Study Date: 07/13/2024 10:30:37 AM Steam Cleaning Machine Operator: Charlette Cardoso RDMS,RVT Order Provider: LORI MIKE Quality: Adequate Ref Provider: LORI MIKE PROCEDURES: Vascular Report: A non-invasive vascular imaging study of the bilateral lower extremity veins was performed using B-mode ultrasound, color flow, and spectral Doppler. INDICATIONS: M79.89 Other specified soft tissue disorders. COMPARISONS: The previous exam was completed on 06/22/2022. Previous venous doppler is negative for DVT bilaterally - FINDINGS: Right: Negative for deep and superficial vein thrombosis in the right lower extremity. Left: Negative for deep and superficial vein thrombosis in the left lower extremity. Provider Notification: Prelim results entered into Epic study notes. CONCLUSIONS: 1. There is no evidence of deep vein thrombosis in the lower extremities bilaterally. ATTESTATION: I have reviewed and interpreted the pertinent images and measurements of this study. I attest to the conclusions in the final report that is provided above. Electronically Signed By: Jeff Pollock MD 07/14/2024 10:53:02 AM CDT Procedure Note Jeff Pollock MD - 07/14/2024 Lower Extremity Venous Report Patient Name: MARIXA MCKENZIE L : 1965 (59y 2m) Gender: F Study Date: 07/13/2024 10:30:37 AM Steam Cleaning Machine Operator: Charlette Cardoso RDMS,RVT Order Provider: LORI MIKE Quality: Adequate Ref Provider: LORI MIKE PROCEDURES: Vascular Report: A non-invasive vascular imaging study of the bilaterallower extremity veins was performed using B-mode ultrasound, color flow, and spectralDoppler. INDICATIONS: M79.89 Other specified soft tissue disorders. COMPARISONS: The previous exam was completed on 06/22/2022. Previous venous doppler isnegative for DVT bilaterally - FINDINGS: Right: Negative for deep and superficial vein thrombosis in the rightlower extremity. Left: Negative for deep and superficial vein thrombosis in the left lowerextremity. Provider Notification: Prelim results entered into Epic study notes. CONCLUSIONS: 1. There is no evidence of deep vein thrombosis in the lower extremitiesbilaterally. ATTESTATION: I have reviewed and interpreted the pertinent images and measurements ofthis study. I attest to the conclusions in the final report that is provided above. Electronically Signed By: Jeff Pollock MD 07/14/2024 10:53:02 AM CDT us Lori Mike WATER PLANT MAINTENANCE MECHANIC IMG US PROCEDURES Final Result * Screening Mammogram Bilateral W Magan (06/06/2024 7:23 AM CDT) Anatomical Region Laterality Modality Breast Bilateral Mammography Narrative 06/08/2024 1:53 PM CDT Mammogram Technique: Bilateral Digital Breast Tomosynthesis, Bilateral C-view 2D Screening mammogram. Views obtained: bilateral craniocaudal and bilateral mediolateral oblique. Computer Aided Detection was performed. Mammogram Findings: The present examination has been compared to prior imaging studies performed at [facility] on 02/16/2021, 02/22/2022 and 02/28/2023. There are scattered areas of fibroglandular density. There is no suspicious abnormality in either breast. Impression: There is no mammographic evidence of malignancy. Annual screening mammography is recommended. OVERALL FINAL ASSESSMENT: BI-RADS CATEGORY 1: Negative. Procedure Note Rosa Fonseca MD - 06/08/2024 Mammogram Technique: Bilateral Digital Breast Tomosynthesis, Bilateral C-view 2D Screening mammogram. Views obtained: bilateral craniocaudal and bilateral mediolateral oblique. Computer Aided Detection was performed. Mammogram Findings: The present examination has been compared to prior imaging studies performed at [facility] on 02/16/2021, 02/22/2022 and 02/28/2023. There are scattered areas of fibroglandular density. There is no suspicious abnormality in either breast. Impression: There is no mammographic evidence of malignancy. Annual screening mammography is recommended. OVERALL FINAL ASSESSMENT: BI-RADS CATEGORY 1: Negative. us Self Screening Mammogram IMG MAMMO PROCEDURES Fi nal Result * Colonoscopy (09/27/2023 11:16 AM CDT) Anatomical Region Laterality Modality Other Narrative Procedure Note Odessa Cage MD - 09/27/2023 11:16 AM CDT GI ENDOSCOPY [facility] Patient Name: Marixa Mckenzie Procedure Date: 09/27/2023 11:16 AM Date of : 1965 Admit Type: Outpatient Age: 58 Gender: Female Attending MD: Odessa Feng M.D. Room: [facility] ENDOSCOPY ROOM 4 Note Status: Finalized Procedure: Colonoscopy Indications: Last colonoscopy: January 2021, Lower abdominalpain and altered bowel habits. Referring MD: Laly Siddiqi M.D. Providers: Odessa Cage M.D. Medicines: Monitored Anesthesia Care Complications: No immediate complications. Estimated Blood Loss: Estimated blood loss was minimal. Procedure: Pre-Anesthesia Assessment: - Prior to the procedure, a History and Physicalwas performed, and patient medications, allergies and sensitivities were reviewed. The patient'stolerance of previous anesthesia was reviewed. - The risks and benefits of the procedure and the sedation options and risks were discussed with the patient. All questions were answered and informed consent was obtained. - Immediately prior to administration ofmedications, the patient was re-assessed for adequacy to receive sedatives. The benefits, risks and alternatives of theprocedure and sedation were discussed and informed consentwas obtained. All questions were answered. Please referto the signed informed consent document in the medical record. The scope was passed under direct vision.The PCF [id number] endoscope was introduced through the anus and advanced to the terminal ileum. The colonoscopy was performed without difficulty. The patient tolerated the procedure well. The qualityof the bowel preparation was evaluated using the BBPS (Mckinney Bowel Preparation Scale) with scores of:Right Colon = 3, Transverse Colon = 3 and Left Colon = 3 (entire mucosa seen well with no residual staining, small fragments of stool or opaque liquid). Thetotal BBPS score equals 9. The bowel preparation used was GoLYTELY via split dose instruction. The quality of the bowel preparation was excellent. AI Technologywas utilized during the procedure to aid in polyp detection. Findings: The terminal ileum appeared normal. Non-bleeding internal hemorrhoids were found during retroflexion. A 2 mm polyp was found in the recto-sigmoid colon. The polyp was sessile. The polyp was removed with a jumbo cold forceps. Resectionand retrieval were complete. Estimated blood loss was minimal. Estimated blood loss was minimal. Random biopsies were taken with a cold forceps in the rectum and inthe sigmoid colon for histology. Estimated blood loss was minimal. Impression: - The examined portion of the ileum was normal. - Non-bleeding internal hemorrhoids. - One 2 mm polyp at the recto-sigmoid colon,removed with a jumbo cold forceps. Resected andretrieved. - Random biopsies were taken with a cold forcepsfor histology in the rectum and in the sigmoid colon. Recommendation: - Await pathology results. - Repeat colonoscopy in 7-10 years [facility]. Attending Participation: I personally performed the entire procedure. Electronically signed by Odessa Cage MD Odessa Cage M.D. 09/27/2023 12:01:55 PM . Number of Addenda: 0 Note Initiated On: 09/27/2023 11:16 AM Odessa Cage MD ENDOSCOPY PROCEDURES Final Result from Last 3 Months or Most Recently Relevant to Health Maintenance Insurance BLUE ACCESS OOS BLUE ACCESS OOS Advance Directives For more information, please contact: [phone] Documents on File Type Date Recorded Patient Toe Closing Machine Tender Expl anation ADVANCE DIRECTIVE 10/12/2019 5:55 PM * Full Code (Latest Code Status on File) Date Activated Date Inactivated Comments 09/27/2023 10:19 AM 09/27/2023 4:59 PM * Full Code Date Activated Date Inactivated Comments 01/27/2021 2:49 PM 01/27/2021 8:55 PM Care Teams Equipment Maint Tech Relationship Specialty Start Date End Date Selvin Sims MD [address] [facility] [address] [place] [address] PCP - General Internal Medicine 12/26/23 Dianelys Hernandez MD [facility] [address] [place] [address] 09/04/18
--- OUTSIDE RECORDS SUMMARY | 2024-10-06 11:53 | XMS_ITS | Clinical Summary ---
Author Organization [facility] Address [address] [place] [address] Care Team Providers Care Film Laboratory Technician Name Role Phone Dianelys Hernandez MD Primary Care Provider Unavaila ble Allergies Active Allergy Reactions Criticality Noted Date Comments Morphine Rash Medium 10/19/2010 Rash Medications aspirin EC (ASPIRIN EC) 81 MG tablet Take 81 mg by mouth daily. Active cyclobenzaprine 5 MG tablet TAKE 1 TABLET BY MOUTH NIGHTLY NEEDED FOR MUSCLE SPASM 02/09/2021 Active irbesartan 150 MG tablet Take 150 mg by mouth nightly. 02/09/2021 Active vitamin D2, ergocalciferol, 22426 UNITS capsule Take 50,000 Units by mouth once a week. 01/10/2021 Active Multiple Vitamin (MULTIVITAMIN) capsule Take 1 capsule by mouth daily. Active potassium chloride CR 20 MEQ tablet 03/03/2021 Active simvastatin 20 MG tablet Take 20 mg by mouth nightly. 02/19/2021 Active acetaZOLAMIDE ER 500 MG 12 hr capsule Take 500 mg by mouth 2 (two) times daily. 02/09/2021 Active methylPREDNISol one, AMANDA, (MEDROL DOSEPAK) 4 MG tablet Take 1 tablet (4 mg total) by mouth daily. 6 TABLETS ON DAY ONE, 5 TABLETS DAY TWO, 4 TABLETS DAY THREE, 3 TABLETS DAY FOUR, 2 TABLETS DAY FIVE, AND 1 TABLET DAY SIX 1 each 12/07/2022 Active Active Problems No known active problems Family History Medical History Relation Comments No Known Problems Brother Cancer Mother Relation Status Comments Brother Father Mother Social History Tobacco Use Types Packs/Day Years Used Date Smoking Tobacco: Never Smokeless Tobacco: Never Alcohol Use Standard Drinks/Week Comments Never 0 (1 standard drink = 0.6 oz pur e alcohol) Comments No Sex and Gender Information Value Date Recorded Sex Assigned at Not on file Legal Sex Female 7:50 PM CDT Gender Identity Not on file Sexual Orientation Not on file Last Filed Vital Signs Vital Sign Reading Time Taken Comments Blood Pressure 165/90 12/07/2022 4:58 PM CDT Pulse 72 12/07/2022 4:58 PM CDT Temperature 36.1 C (97 F) 12/07/2022 4:58 PM CDT Respiratory Rate 18 12/07/2022 4:58 PM CDT Oxygen Saturation 98% 12/07/2022 4:58 PM CDT Inhaled Oxygen Concentration - - Weight 75.8 kg (167 lb) 12/07/2022 4:58 PM CDT Height 157.5 cm (5' 2) 12/07/2022 4:58 PM CDT Body Mass Index 30.54 12/07/2022 4:58 PM CDT Plan of Treatment Health Maintenance Due Date Last Done Comments Colorectal Cancer Screening Colonoscopy (10 Years) 1965 Annual Physical 1968 Hepatitis C 04/27/1983 Mammogram Screening 2005 Pneumococcal Vaccine: 50+ Years (1 of 1 - PCV) 04/27/2015 Zoster Vaccines (1 of 2) 04/27/2015 COVID-19 Vaccine (4 - 2023-2 5 season) 2023 03/14/2021, 05/27/2020, 05/06/2020 DTaP, Tdap and Td Vaccines ( 2 - Td or Tdap) 10/27/2031 10/26/2021 Meningococcal B Vaccine Aged Out No l onger eligible based on patient's age to complete this topic Meningococcal Vaccine Aged Out No berhane cipriano eligible based on patient's age to complete this topic RSV Immunizations Under 20 Months Aged Out No longer eligible b ased on patient's age to complete this topic Insurance BLUE CROSS BLUE SHIELD Care Teams Film Laboratory Technician Relationship Specialty Start Date End Date Dianelys Hernandez MD PCP - General INTERNAL MEDICINE 03/07/21
== END 2024-10-06 10:57 | disposition home or self-care (01) ==
PROVIDERS: Visit Provider Urology
DX: N20.0 Calculus of kidney (principal)
CPT/HCPCS: 74018

== ENCOUNTER 2025-02-10 09:36 | Outpatient (CLI) | payer BC, SELFPAY ==
--- NOTE | 2025-02-10 09:50 | ECG_ITS ---
Test Date: 2025-02-10 10:00:32 Measurements Intervals [place] Rate: 60 P: 44 MA: 166 QRS: -34 QRSD: 106 T: -30 QT: 403 QTc: 403 Interpretive Statements SINUS RHYTHM LEFT AXIS DEVIATION INCOMPLETE RIGHT BUNDLE BRANCH BLOCK LEFT VENTRICULAR HYPERTROPHY MINIMAL Q WAVES- HIGH LATERAL LEADS CANNOT R/O SEPTAL INFARCT, AGE INDETERMINATE BORDERLINE T WAVE ABNORMALITY- ANTEROLAT/INF LEADS BASELINE ARTIFACT- I, II, III, AVR, AVL, AVF ABNORMAL ECG No previous ECG available for comparison Electronically Signed On 02-10-2025 10:34:37 MECHANICAL SYSTEMS DESIGNER by Daryn Parks D.O.
[2025-02-10 10:15] LABS: Add Urine Microscopic? YES; Appearance Urine Clear (Clear); Glucose Urine UA Negative (Negative); Leukocyte Esterase Ur Trace LEU/UL (Negative); Nitrate Urine Negative (Negative); Non Pathogenic Casts 0-2; Specific Grav Ur 1.013 (1.001-1.035)
[2025-02-10 10:25] LABS: INR 0.9; Prothrombin Time 12.3 Seconds (11.1-14.7)
[2025-02-10 10:26] LABS: Partial Thromboplastin Time 27.0 Seconds (22.3-36.8)
--- OUTSIDE RECORDS SUMMARY | 2025-02-10 10:46 | XMS_ITS | Clinical Summary ---
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 02/09/2021 Active vitamin D2, ergocalciferol, 56630 UNITS capsule Take 50,000 Units by mouth [...] of 2) 04/27/2015 COVID-19 Vaccine (4 - season) 2024 03/14/2021, 05/27/2020, 05/06/2020 Influenza Adult (#1) 2024 01/25/2022, 12/15/2020, 01/08/2020, Additional history exists DTaP, Tdap and Td Vaccines (2 - Td or Tdap) 10/27/2031 10/26/2021 Hepatitis A Vaccines Aged Out No long er eligible based on patient's age to complete this topic Meningococcal B Vaccine Aged Out No l onger eligible based on patient's age to complete this topic Meningococcal Vaccine Aged Out No berhane cipriano eligible based on patient's age to complete this topic RSV Immunizations Under 20 Months Aged Out No longer eligible based on patient's age to complete this topic Insurance [facility] Care Teams Crop Setting Out Machine Operator Relationship Specialty Start Date End Date Dianelys Hernandez MD PCP - General INTERNAL MEDICINE 03/07/21
--- OUTSIDE RECORDS SUMMARY | 2025-02-10 10:46 | XMS_ITS | Clinical Summary ---
Author Organization [facility] Address [address] [place] [id number] Care Team Providers Care Area Representative Name Role Phone Dianelys Hernandez MD Unavailable Selvin Sims MD Primary Care Provider + Allergies Active Allergy Reactions Criticality Noted Date Comments Pi-Sw-Qcqrbu/Cg-Wnqjas-Dxjgztb Morphine Rash Medium 03/11/2013 Rash Oxaprozin Rash Medium 03/11/2013 Rash Medications multivitamin capsule Take 1 capsule by mouth daily Active calcium carbonate-vitamin D3 1,250 mg (500 mg elemental)-125 unit per tablet Take 1 tablet by mouth daily Active aspirin 81 mg enteric coated tablet Take 1 tablet (81 mg total) by mouth daily 30 tablet 1 3 Active dicyclomine (BENTYL) 10 mg capsule Take 1 capsule (10 mg total) by mouth 3 (three) times a day as needed (abd cramps) 60 capsule 4 Active acetaZOLAMIDE ER (DIAMOX SEQUAL) 500 mg capsule Take 1 capsule by mouth twice daily. 180 capsule 5 Active cholecalciferol (VITAMIN D-3) 2000 unit tablet Take 1 tablet (2,000 Units total) by mouth daily 90 tablet 3 5 Active fluticasone propionate (FLONASE) 50 mcg/actuation nasal spray Administer 2 sprays into each nostril daily 3 each 4 5 Active amLODIPine (NORVASC) 10 mg tabletIndications: Hypertension, essential Take 1 tablet (10 mg total) by mouth daily 90 tablet 4 5 Active irbesartan (AVAPRO) 300 mg tabletIndications: Hypertension, essential Take 1 tablet (300 mg total) by mouth nightly 90 tablet 4 5 Active potassium chloride ER (KLOR-CON) 10 mEq CR tabletIndications: Hypokalemia Take 2 tablet/capsule (20 mEq total) by mouth 2 (two) times a day 360 tablet 4 5 Active simvastatin (ZOCOR) 20 mg tabletIndications: Mixed hyperlipidemia Take 1 tablet (20 mg total) by mouth nightly 90 tablet 4 5 Active Active Problems Problem Noted Date Diagnosed [...] 02/07/2023 Assessment & Plan (02/07/2023 9:39 AM EMBLEM DRAWER IN): Started over the last weekend She has [...] 04/04/2021 Assessment & Plan (04/04/2021 1:14 PM EMBLEM DRAWER IN): She has been referred to ortho Symptoms fluctuate and flare and shoots into her left hip and down her leg She will be evaluated by ortho Class 2 severe obesity due t o excess calories with serious comorbidity and body mass index (BMI) of 35.0 to 35.9 in adult 12/15/2020 Assessment & Plan (06/17/2024 7:53 AM CDT): Encouraged healthy diet and exercise through low sodium, low carbohydrate diet, with exercise. Assessment & Plan (02/07/2023 8:50 AM EMBLEM DRAWER IN): Encouraged healthy diet and exercise through low [...] exercise. Assessment & Plan (04/04/2021 1:14 PM EMBLEM DRAWER IN): Encouraged healthy diet and exercise through low [...] gastroenteritis or colitis. Need to evaluate for outpatient coder etiology and recommend that she see her mail handler Migraine without aura and wi thout status migrainosus, not intractable 01/15/2020 Papilledema 09/14/2019 Pseudotumor cerebri 07/09/2019 Assessment & Plan (01/11/2025 9:58 AM EMBLEM DRAWER IN): Orders: Ambulatory referral to Ophthalmology; Future Assessment & Plan (01/13/2021 10:14 AM EMBLEM DRAWER IN): Doing well. No active edema today. OCT [...] Assessment & Plan (07/09/2019 4:43 PM CDT): Jose Mckenzie presents for IIH evaluation. She initially presented to her local [facility] in April 2019 due to headaches, TVOs and blurry vision, without pulsatile tinnitus or diplopia. She was then sent to the [facility] ED due to disc edema OS>>OD noted by her local [facility]. In the ED, MRI/MRV Brain and Orbits [...] Central vision intact, no APD (checked by roof technician, patient dilated when I saw her). No headaches or pulsatile tinnitus currently. Patient endorses some mild tingling of her feet when specifically asked. Plan to continue diamox 500mg bid, and patient will follow up as scheduled on 3/23/[address] Ogden with F and OCT. Vitamin D deficiency 01/02/2019 Assessment & Plan (12/27/2023 2:57 PM CDT): 1. Chronic, poorly controlled at last check 2. Will continue vitamin-D supplementation and repeat vitamin-D Assessment & Plan (01/02/2019 11:03 AM EMBLEM DRAWER IN): The results from your labs show low Vitamin D levels. Please also increase foods rich in vitamin D in your diet such as milk, almond milk, cheese, yogurt, salmon and mushrooms. Please begin taking an over the counter vitamin D 2,000 iu supplement daily. 10-15 minutes of sunlight daily also aids in vitamin D production. Hypokalemia 01/02/2019 Assessment & Plan (01/11/2025 9:58 AM EMBLEM DRAWER IN): Orders: potassium chloride ER (KLOR-CON) 10 mEq CR tablet; Take 2 tablet/capsule (20 mEq total) by mouth 2 (two) times a day Assessment & Plan (12/27/2023 2:56 PM CDT): [...] 2019 Assessment & Plan (01/02/2019 10:59 AM EMBLEM DRAWER IN): Will recheck level today Hypertension, essential 01/02/2019 Assessment & Plan (01/11/2025 9:58 AM EMBLEM DRAWER IN): Orders: amLODIPine (NORVASC) 10 mg tablet; Take 1 tablet (10 mg total) by mouth daily irbesartan (AVAPRO) 300 mg tablet; Take 1 tablet (300 mg total) by mouth nightly Assessment & Plan (06/17/2024 7:58 AM CDT): [...] medications. Assessment & Plan (02/07/2023 1:11 PM EMBLEM DRAWER IN): On diamox 500 mg once daily, amlodipine [...] mo Assessment & Plan (01/25/2022 9:26 AM EMBLEM DRAWER IN): On diamox 500 mg now once daily, [...] appointment Assessment & Plan (04/04/2021 1:00 PM EMBLEM DRAWER IN): On diamox 500 mg BID, amlodipine 10 [...] visit Assessment & Plan (03/22/2020 4:41 PM EMBLEM DRAWER IN): Hypertension has improved with lifestyle changes and [...] mo Assessment & Plan (01/02/2019 11:02 AM EMBLEM DRAWER IN): Hypertension is improving with treatment Continue current treatment regimen Dietary sodium restriction Weight loss Regular aerobic exercise Continue current medications Blood pressure will be reassessed at the next regular appointment History of hysterectomy 03/03/2018 Assessment & Plan (03/03/2018 10:08 AM EMBLEM DRAWER IN): Dr. Elizabeth Nicholson is her OBGYN and she sees her bi-yearly. Chronic left hip pain 03/03/2018 Assessment & Plan (04/04/2021 1:01 PM EMBLEM DRAWER IN): She has been referred to ortho Currently, [...] ortho Assessment & Plan (03/03/2018 11:10 AM EMBLEM DRAWER IN): X-ray ordered today Referral to ortho Mixed hyperlipidemia 03/03/2018 Assessment & Plan (01/11/2025 9:58 AM EMBLEM DRAWER IN): Orders: simvastatin (ZOCOR) 20 mg tablet; Take 1 tablet (20 mg total) by mouth nightly Assessment & Plan (06/17/2024 7:59 AM CDT): Chronic, stable Continue simvastatin Assessment & Plan (02/07/2023 8:52 AM EMBLEM DRAWER IN): On simvastatin 20 mg daily Recommend low [...] mo Assessment & Plan (04/04/2021 1:00 PM EMBLEM DRAWER IN): On simvastatin 20 mg daily Recommend low [...] continued Assessment & Plan (03/22/2020 4:40 PM EMBLEM DRAWER IN): Lipids have improved with lifestyle changes and medication Continue low fat diet Current medication will be continued Will reassess at the next office visit Assessment & Plan (01/08/2020 12:59 PM EMBLEM DRAWER IN): Lipids have improved with lifestyle changes and [...] mo Assessment & Plan (03/03/2018 11:10 AM EMBLEM DRAWER IN): Lipid profile labs ordered today Thyroid nodule [...] 024 Assessment & Plan (02/07/2023 8:50 AM EMBLEM DRAWER IN): Encourage monthly self breast exams, every 6 [...] appointment Assessment & Plan (01/08/2020 12:58 PM EMBLEM DRAWER IN): BP has been well controlled on the current medication Blood Pressure Follow-up: Lifestyle modifications education provided on sodium reduction, increase physical activity and weight reduction Current medication will be continued. Will reassess in 4 months BMI 31.0-31.9,adult 03/03/2018 12/26/19 24 Assessment & Plan (01/26/2022 6:22 AM EMBLEM DRAWER IN): Encouraged healthy diet and exercise through low [...] exercise. Assessment & Plan (01/02/2019 11:00 AM EMBLEM DRAWER IN): Encouraged healthy diet and exercise through low sodium, low carbohydrate diet, with exercise. Assessment & Plan (03/03/2018 11:19 AM EMBLEM DRAWER IN): Discussed the mediterranean diet Discussed increasing water intake Recommended increasing physical activity, vegetables, and fruit intake Encounters Date Type Department Care Team Description 02/05/2025 Telephone [facility] Medical [facility] at the [address] [place] [phone] Selvin Sims MD Medical Question/Miscellaneous 01/25/2025 Telephone [facility] Medical [facility] at the [address] [phone] Selvin Sims MD Medical Question/Miscellaneous 01/14/2025 Telephone [facility] Medicine Ophthalmology [address] [place] [phone] Frank Ogden MD New pt scheduled 01/11/2025 9:30 AM EMBLEM DRAWER IN Office Visit [facility] at the [address] [phone] Selvin Sims MD Annual visit for general adult medical examination without abnormal findings (Primary Dx); Sleep disorder; Bilateral leg pain; Pseudotumor cerebri; Hypertension, essential; Hypokalemia; Mixed hyperlipidemia 12/10/2024 12:55 PM CDT [facility] [address] [place] [address] Annual visit for general adult medical examination without abnormal findings; Routine screening for STI (sexually transmitted infection) 12/07/2024 Telephone [facility] Medical Group at the [address] [phone] Selvin Sims MD Medical Question/Miscellaneous 11/26/2024 Telephone [facility] Medical [facility] at the [address] [phone] Selvin Sims MD Medical Question/Miscellaneous from Last 3 Months Immunizations Immunization Administration Dates Next Due Influenza, Quadrivalent, Spl it, Preservative Free, Intramuscular 01/25/2022,12/15/2020,01/08/2020,11/27 Influenza, Trivalent, Preser vative Free, Intramuscular 12/26/2023 Influenza, Unspecified 01/11/2025(Deferr ed: Patient Refused),11/26/2022,12/23/2018, 018 Pfizer SARS-CoV-2 Monovalent Vaccination (12+ Yrs) PURPLE [...] points, staff should administer the PHQ-9) 0 01/11/2025 [facility] - Occup[facility] Stress [...] on file Legal Sex Female 7:21 PM EMBLEM DRAWER IN Gender Identity Not on file Sexual Orientation [...] Sign Reading Time Taken Comments Blood Pressure 124/80 01/11/2025 9:26 AM EMBLEM DRAWER IN Pulse 76 01/11/2025 9:26 AM EMBLEM DRAWER IN Temperature 36.3 C (97.3 F) 01/08/2024 1:41 PM EMBLEM DRAWER IN Respiratory Rate 16 09/21/2024 8:44 AM CDT Oxygen Saturation 97% 01/11/2025 9:26 AM EMBLEM DRAWER IN Inhaled Oxygen Concentration - - Weight 88.5 kg (195 lb) 01/11/2025 9:26 AM EMBLEM DRAWER IN Height 157.5 cm (5' 2) 01/11/2025 9:26 AM EMBLEM DRAWER IN Body Mass Index 35.67 01/11/2025 9:26 AM EMBLEM DRAWER IN Plan of Treatment Scheduled Procedures Name Priority Associated Diagnoses Date/Ti me COLONOSCOPY Open Access Colon cancer screening COLONOSCOPY Screening for colon cancer COLONOSCOPY Annual physical exam Screening for colon cancer Health Maintenance Due Date Last Done Comments Hepatitis C Screening 1965 Hepatitis B Screening 04/27/1983 Zoster Vaccine (1 of 2) 04/27/2015 Covid-19 Vaccine ( season) 2024 03/14/2021, 05/27/2020, 05/06/2020 Influenza Vaccine (#1) 2024 , 11/26/2022, 01/25/2022, Additional history exists Breast Cancer Screening-Mammogram 06/06/2025 06/06/2024, 02/28/2023, 02/22/2022, Additional history exists Depression Screening 01/11/2026 01/11/2025, 09/21/2024, 07/05/2023, Additional history exists Regular Well Visit/Exam 18-64 01/11/2026 01/11/2025, 12/26/2023, 02/07/2023, Additional history exists DTaP/Tdap/Td Vaccine (2 [...] Procedure Name Priority Date/Time Associated Diagnosis Comments EGFR Routine 12/10/2024 1:17 PM CDT COMPREHENSIVE METABOLIC PANEL Routine 12/10/2024 1:17 PM CDT Routine screening for STI (sexually transmitted infection) HEMOGLOBIN A1C Routine 12/10/2024 1:17 PM CDT Annual visit for general adult medical examination without abnormal findings LIPID PANEL Routine 12/10/2024 1:17 PM CDT Annual visit for general adult medical examination without abnormal findings CBC WITHOUT DIFFERENTIAL Routine 12/10/2024 1:17 PM CDT Annual visit for general adult medical examination without abnormal findings HIV 1/2 ANTIBODY PLUS P24 ANTIGEN Routine 12/10/2024 1:17 PM CDT Routine screening for STI (sexually transmitted infection) SCREENING MAMMOGRAM BILATERAL W MAGAN Schedule Routine, Read Routine (OP Routine) 06/06/2024 7:23 AM CDT Screening mammogram, encounter for COLONOSCOPY 09/27/2023 11:16 AM CDT from Last 3 Months or Most Recently Relevant to Health Maintenance Results * eGFR (12/10/2024 1:17 PM CDT) eGFR >90 >=60 mL/min/1. 73 m2 Comment: Interpretive Data Reference Interval Normal >/= 90 mL/min/1.73m2 Mildly decreased* 60 - 89 mL/min/1.73m2 Mildly to moderately decreased 45 - 59 mL/min/1.73m2 Moderately to severely decreased 30 - 44 mL/min/1.73m2 Severely decreased 15 - 29 mL/min/1.73m2 Kidney Failure < 15 mL/min/1.73m2 *Relative to young adult level Estimated glomerular filtration rate is determined by the 2020 CKD-EPI equation recommended by the National Kidney Foundation (A Unifying Approach to GFR Estimation: Recommendations of the NKF-ASK Task Force on Reassessing the Inclusion of Race in Diagnosing Kidney Disease, JASN 2020). The CKD-EPI equation should not be used for patients with unstable renal function and has not been validated in children and those over 70. Current interpretive data was last reviewed 2020. Testing performed by: [facility], [address] [place] [address]., [id number] Blood 12/10/2024 1:17 PM CDT 12/10/2024 4:20 PM CDT Selvin Sims MD LAB BLOOD ORDERABLES [facility] al Result [facility] [address] [facility] Department [place] [address] * HIV 1/2 Antibody plus p24 Antigen Blood (12/10/2024 1:17 PM CDT) HIV 1/2 ab + p24 ag Nonreactive Nonreactive Comment:Nonreactive for HIV- 1 antigen and HIV-1/HIV-2 antibodies. No laboratory evidence of HIV infection. If acute HIV infection is suspected, consider testing for HIV-1 RNA. Current interpretive data was last revised on 21. Blood 12/10/2024 1:17 PM CDT 12/10/2024 5:08 PM CDT us Selvin Sims MD LAB MICROBIOLOGY - GENER AL ORDERABLES Final Result [facility] [address] [facility] Department [place] [address] * CBC without differential (12/10/2024 1:17 PM CDT) WBC 4.14 3.80 - 9.90 K/cumm Comment:Testing performed by : [address] [address] Hgb 13.5 11.9 - 15.5 g/dL NEAL Comment:Testing performed by : [address] [address] Hct 40.9 35.6 - 45.5 % NEAL Comment:Testing performed by : [address] [address] Plt 311 150 - 400 K/cumm NEAL Comment:Testing performed by : [address] [address] MPV 10.1 9.1 - 12.3 fL NEAL Comment:Testing performed by : [address] [address] RBC 4.45 3.90 - 5.20 M/cumm NAEL Comment:Testing performed by : [address] [address] MCV 91.9 81.3 - 96.4 fL NEAL Comment:Testing performed by : [address] [address] MCH 30.3 27.1 - 33.3 pg NEAL Comment:Testing performed by : [address] [address] MCHC 33.0 32.3 - 35.7 g/dL NEAL Comment:Testing performed by : [address] [address] RDW CV 13.0 11.1 - 14.9 % NEAL Comment:Testing performed by : [address] [address] RDW SD 43.5 35.7 - 48.1 fL NEAL HURT Comment:Testing performed by : [address] [address] NRBC abs 0.00 0.00 - 0.01 K/cumm NEAL HURT Comment:Testing performed by : [address] [address] Blood 12/10/2024 1:17 PM CDT 12/10/2024 4:19 PM CDT Selvin Sims MD LAB BLOOD ORDERABLES Fin al Result Performing Organization Address [facility] de Phone Number [address] [place] [address] * Hemoglobin A1c (12/10/2024 1:17 PM CDT) [facility] Hgb A1C 5.4 4.0 - 5.6 % Comment:Testing performed by : [address] [address] Estimated Average Glucose 108 mg/dL NEAL Comment: The ADA recommends reporting an estimated Average Glucose (eAG) with all Hemoglobin A1c results using the equation derived from a study of 507 normal and diabetic adults. Minority populations were underrepresented and children were not included. (Diabetes Care 31:8755-0756, 2008). The eAG is not equivalent to a fasting glucose. Testing performed by: [address] [address] Blood 12/10/2024 1:17 PM CDT 12/10/2024 4:19 PM CDT Selvin Sims MD LAB BLOOD ORDERABLES Fin al Result Performing Organization Address [facility] de Phone Number [address] [address] * Lipid panel (12/10/2024 1:17 PM CDT) Cholesterol 168 30 - 199 mg/dL Comment: Interpretive Data Ages < or = 19 years Acceptable: <170 mg/dL Borderline high: 170-199 mg/dL High: >or= 200 mg/dL Ages > or = 20 years Desirable: <200 mg/dL Borderline high: 200-239 mg/dL High: >or= 240 mg/dL Literature References: 1. Expert Panel on Integrated Guidelines for Cardiovascular Health and Risk Reduction in Children and Adolescents. Pediatrics 2011;128:S213 2. NCEP Expert Panel. Circulation 2004;110:227 Current Interpretive Data was last revised on 2017. Testing performed by: [address] [address] Triglycerides 82 <=149 mg/dL NEAL Comment: Interpretive Data Ages < or = 9 years Acceptable: <75 mg/dL Borderline high: 75-99 mg/dL High: >or= 100 mg/dL Ages 10 to 20 years Acceptable: <90 mg/dL Borderline high: 90-129 mg/dL High: >or= 130 mg/dL Ages > or = 20 years Desirable: <150 mg/dL Borderline high: 150-199 mg/dL High: 200-499 mg/dL Very high: >or= 499 mg/dL Literature References: 1. Expert Panel on Integrated Guidelines for Cardiovascular Health and Risk Reduction in Children and Adolescents. Pediatrics 2011;128:S213 2. NCEP Expert Panel. Circulation 2003;110:227 Current Interpretive Data was last revised on 2017. Testing performed by: [address] [address] HDL 51 >=40 mg/dL NEAL Comment: Interpretive Data Ages < or = 19 years Acceptable: >45 mg/dL Borderline low: 40-45 mg/dL Low: <40 mg/dL Ages > or = 20 years Desirable: >or= 60 mg/dL Low: <40 mg/dL Literature References: 1. Expert Panel on Integrated Guidelines for Cardiovascular Health and Risk Reduction in Children and Adolescents. Pediatrics 2011;128:S213 2. NCEP Expert Panel. Circulation 2004;110:227 Current Interpretive Data was last revised on 2017. Testing performed by: [address] [address] LDL, calculated 102 <=129 mg/dL NEAL Comment: Interpretive Data Ages < or = 19 years Acceptable: <110 mg/dL Borderline high: 110-129 mg/dL High: >or= 130 mg/dL Ages > or = 20 years Optimal: <100 mg/dL Near optimal: 100-129 mg/dL Borderline high: 130-159 mg/dL High: >160 mg/dL Calculated using the Paulo LDL-C estimating equation. This equation was implemented on 2023. Prior to this date LDL-C was estimated using the Friedewald equation. Literature References: 1. Expert Panel on Integrated Guidelines for Cardiovascular Health and Risk Reduction in Children and Adolescents. Pediatrics 2011;128:S213 2. NCEP Expert Panel. Circulation 2004;110:227 3. Paulo Garrison et al. JA Cardiol. 2019June 25;5(5):540-548. doi: 10.1001/jamacardio.2020.0013 Current Interpretive Data was last revised on 2023. Testing performed by: [address] [address] Non-HDL Cholesterol 117 mg/dL NEAL Comment: Interpretive Data Ages < or = 19 years Acceptable: <120 mg/dL Borderline high: 120-144 mg/dL High: >145 mg/dL Ages > or = 20 years When triglycerides are >200 mg/dL, Non-HDL cholesterol is a secondary target of therapy with treatment goals that are 30 mg/dL greater than the LDL cholesterol target. Literature References: 1. Expert Panel on Integrated Guidelines for Cardiovascular Health and Risk Reduction in Children and Adolescents. Pediatrics 2011;128:S213 2. NCEP Expert Panel. Circulation 2004;110:227 Current Interpretive Data was last revised on 2017. Testing performed by: [address] [address] Chol/HDL ratio 3 NEAL Comment:Testing performed by : [address] [address] Blood 12/10/2024 1:17 PM CDT 12/10/2024 4:20 PM CDT Selvin Sims MD LAB BLOOD ORDERABLES Fin al Result NEAL [address] [facility] Department [place] [address] * (ABNORMAL) Comprehensive metabolic panel (12/10/2024 1:17 PM CDT) Sodium 141 135 - 145 mmol/L Comment:Testing performed by : [address] [address] Potassium, pl 3.4 3.3 - 4.9 mmol/L NEAL Comment:Testing performed by : [address] [address] Chloride 110 97 - 110 mmol/L NEAL Comment:Testing performed by : [address] [address] CO2 21(L) 22 - 32 mmol/L NEAL Comment:Testing performed by : [address] [address] Anion gap 10 2 - 15 mmol/L NEAL Comment:Testing performed by : [address] [address] BUN 9 6 - 25 mg/dL NEAL Comment:Testing performed by : [address] [address] Creatinine 0.75 0.60 - 1.10 mg/dL NEAL Comment:Testing performed by : [address] [address] Glucose 112 70 - 199 mg/dL [facility] Comment: Interpretive Data Fasting glucose >/= 126 mg/dl is diagnostic for diabetes. Fasting is defined as no caloric intake for at least 8 hours. Fasting glucose between 100 mg/dl to 125 mg/dl is diagnostic of prediabetes. In a patient with classic symptoms of hyperglycemia or hyperglycemic crisis, a random glucose >/= 200 mg/dl is diagnostic for diabetes. In the absence of unequivocal hyperglycemia, results should be confirmed by repeat testing. The classification and Diagnosis of Diabetes Diabetes Care 202; 46: S19-S40. Current interpretive data was last revised 2022. Testing performed by: [address] [address] Calcium 9.7 8.5 - 10.3 mg/dL ENAL Comment:Testing performed by : [address] [address] Bilirubin, total 0.4 0.1 - 1.2 mg/dL NEAL Comment:Testing performed by : [address] [address] Protein, pl 7.1 6.5 - 8.5 g/dL NEAL Comment:Testing performed by : [address] [address] Albumin 4.4 3.5 - 5.0 g/dL NEAL Comment:Testing performed by : [address] [address] Alk phos 117 40 - 130 Units/L NEAL Comment:Testing performed by : [address] [address] ALT <5(L) 7 - 45 Units/L NEAL Comment:Testing performed by : [address] [address] AST 16 10 - 45 Units/L NEAL Comment:Testing performed by : [address] [address] Blood 12/10/2024 1:17 PM CDT 12/10/2024 4:20 PM CDT Selvin Sims MD LAB BLOOD ORDERABLES [facility] al Result Performing Organization Address City/State/[facility] Co de Phone Number NEAL [address] [facility] Department [place] [address] * Screening Mammogram Bilateral W Magan (06/06/2024 7:23 AM CDT) Anatomical Region Laterality Modality Breast Bilateral Mammography Narrative 06/08/2024 1:53 PM CDT Mammogram Technique: Bilateral Digital Breast Tomosynthesis, Bilateral C-view 2D Screening mammogram. Views obtained: bilateral craniocaudal and bilateral mediolateral oblique. Computer Aided Detection was performed. Mammogram Findings: The present examination has been compared to prior imaging studies performed at [facility] on 02/16/2021, 02/22/2022 and 02/28/2023. There are [...] compared to prior imaging studies performed at [facility] on 02/16/2021, 02/22/2022 and 02/28/2023. There are [...] AM CDT [facility] Patient Name: Jose Mckenzie Procedure Date: 09/27/2023 11:16 AM Date of : 1965 Admit Type: Outpatient Age: 58 Gender: Female Attending MD: Harley CanalesD. Room: [facility] ENDOSCOPY ROOM 4 Note Status: Finalized Procedure: [...] was passed under direct vision.The [id number] [id number] endoscope was introduced through the anus and advanced to the terminal ileum. The colonoscopy was performed without difficulty. The patient tolerated the procedure well. The qualityof the bowel preparation was evaluated using the BBPS (Clinton Bowel Preparation Scale) with scores of:Right Colon [...] results. - Repeat colonoscopy in 7-[address] [facility]. Attending Participation: I personally performed the entire procedure. Electronically signed by Odessa Cage MD Odessa Cage M.D. 09/27/2023 12:01:55 PM . Number of Addenda: 0 Note Initiated On: 09/27/2023 11:16 AM Odessa Cage MD ENDOSCOPY PROCEDURES Final Result from Last 3 Months or Most Recently Relevant to Health Maintenance Insurance [employer] Advance Directives For more information, please contact: [phone] Documents on File Type Date Recorded Patient Building Analyst/Supervisor Expl anation ADVANCE DIRECTIVE 10/12/2019 5:55 PM * Full Code (Latest Code Status on File) Date Activated Date Inactivated Comments 09/27/2023 10:19 AM 09/27/2023 4:59 PM * Full Code Date Activated Date Inactivated Comments 01/27/2021 2:49 PM 01/27/2021 8:55 PM Care Teams Area Representative Relationship Specialty Start Date End Date Selvin Sims MD [address] [place], [place] [address]IOS [address] [address] PCP - General Internal Medicine 12/26/23 Dianelys Hernandez MD [facility]0 PEKIN JAZMINE [address] [address] 09/04/18
--- OUTSIDE RECORDS SUMMARY | 2025-02-10 10:46 | XMS_ITS | Encounter Summary ---
Author Organization [facility] Healthcare Address [address] [place] [address] Care Team Providers Care Health Science Instructor Name Role Phone Dianelys Hernandez MD Unavailable [phone] Selvin Sims MD Primary Care Provider + Reason for Visit * Reason Onset Date Comments Medical Question/Miscellaneous 01/25/2025 Encounter Details Date Type Department Care Team (Late st Contact Info) Description 01/25/2025 Telephone [facility] Medical Group at the [address] [place] [address] Selvin Sims MD [address] [place] [address] [address] [place], [place] [id number] Medical Question/Miscellaneous Social History Tobacco Use Types Packs/Day Years Used Date Smoking Tobacco: Never Smokeless Tobacco: Never Alcohol Use Standard Drinks/Week Comments No 0 (1 standard drink = 0.6 oz pur e alcohol) AUDIT-C Answer Date Recorded Q1: How often do you have a drink containing alc ohol? 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 Caller just wanted to make PCP aware. Does message need to be routed? Yes-Action Needed N'S SOCCER COACH documented in this encounter Plan of Treatment Scheduled Procedures Name Priority Associated Diagnoses Date/Ti ak COLONOSCOPY Open Access Colon cancer screening COLONOSCOPY Screening for colon cancer COLONOSCOPY Annual physical exam Screening for colon cancer documented as of this encounter Visit Diagnoses Not on filedocumented in this encounter Care Teams Health Science Instructor Relationship Specialty Start Date End Date Selvin Sims MD [address] [place], [place] [address]REMEDIOS [address] [place] [address] PCP - General Internal Medicine 12/26/23 Dianelys Hernandez MD [address] [address] [place] [address] 09/04/18 documented as of this encounter
--- OUTSIDE RECORDS SUMMARY | 2025-02-10 10:46 | XMS_ITS | Encounter Summary ---
Author Organization [facility] Address [address] [place] [address] Phone Care Team Providers Care Metal Baler Name Role Phone Dianelys Hernandez MD Unavailable [phone] Dianelys Hernandez MD Primary Care Provider [phone], Physician Primary Care Provider [phone] Selvin Sims MD Primary Care Provider + No, Physician Primary Care Provider [phone] Selvin Sims MD Primary Care Provider + No, Physician Primary Care Provider Selvin Sims MD Primary Care Provider + Encounter Details Date Type Department Care Team (Late st Contact Info) Description 05/16/2019 Ophth Exam [facility] Medicine Ophthalmology [address] [place] [address] [place] [phone] Kelsie Adam MD [address] [place] [address] Social History Tobacco Use Types Packs/Day Years Used Date Smoking Tobacco: Never Smokeless Tobacco: Never Alcohol Use Standard Drinks/Week Comments No 0 (1 standard drink = 0.6 oz pur e alcohol) PHQ-2 Answer Date Recorded PHQ-2 Score 6 10/15/2018 Comments No Sex and Gender Information Value Date Recorded Sex Assigned at Not on file 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 Unable to assess 05/19/2019 9:53 AM CDT documented as of this encounter Functional Status * Question Answer Date of Assessment Author MAP (mmHg) 101 05/16/2019 9:30 PM CDT Caryn La RN * Fall Risk Assessment Tool - MEDFRAT Question Answer Date of Assessment Author History of falling in last 3 months, including since admission 0 05/16/2019 3:54 PM Gladys Gorman RN Confusion or disorientation 0 05/16/2019 3:54 PM Gladys Gorman RN Intoxicated or sedated 0 0 3:54 PM Gladys Gorman RN Impaired gait 0 05/16/2019 3:54 PM Gladys Gorman RN Mobility assist device used 0 05/16/2019 3:54 PM Gladys Gorman RN Altered elimination 0 05/16/2019 3 :54 PM Gladys Gorman RN Fall risk score: (1-2 low risk), (3-4 moderate risk), (5 or more high risk) 0 05/16/2019 3:54 PM Gladys Gorman RN Interventions - GENERAL USE as needed patient/family education 05/16/2019 3:54 PM Gladys Gorman RN documented as of this encounter Mental Status * Question Answer Entry Date Author Level of Consciousness Alert;Awake 0 7:37 PM Caryn Garcia RN Orientation Oriented X4 (person, place, time, situation) 05/16/2019 7:37 PM Caryn Garcia RN Other Neuro Symptoms Headache 05/16/2019 7:37 PM Caryn Garcia, SOPHIE documented in this encounter Plan of Treatment Scheduled Procedures Name Priority Associated Diagnoses Date/Ti ri COLONOSCOPY Open Access Colon cancer screening COLONOSCOPY [...] Ratio 0.1 0.1 Undilated exam Care Teams Metal Baler Relationship Specialty Start Date End Date Dianelys Hernandez MD [facility]0 [address] [place] [address] PCP - General Internal Medicine 09/04/18 03/05/23 No, Physician PCP - General 03/06/23 05/29/23 Selvin Sims MD [facility] [place] [address] PCP - General Internal Medicine 05/30/23 09/16/23 No, Physician PCP - General 09/17/23 10/07/23 Selvin Sims MD [facility] [place] [address] PCP - General Internal Medicine 10/08/23 12/18/23 No, Physician PCP - General 12/19/23 12/25/23 Selvin Sims MD [facility] [place] [address] PCP - General Internal Medicine 12/26/23 Dianelys Hernandez MD [facility] [facility] [address] Gill MUNIZ [address] [place] [address] 09/04/18 documented as of this encounter
--- OUTSIDE RECORDS SUMMARY | 2025-02-10 10:46 | XMS_ITS | Clinical Summary ---
Author Organization [facility] Address [address] [facility] [address] Care Team Providers Care Endocrinology Teacher Name Role Phone Helen Gusman MD Primary Care Provider [phone] Carmen Mccallum MD Unavailable [phone] Nathan Romero MD Unavailable [phone] Source Comments [facility],non-owned Affiliates and Associated Physician Practices is amultiple site organization consisting of ambulatory clinics and hospital sitesin [place], [place], [place] and [place]. This disclosure is being madepursuant to the Care Everywhere program and may not contain all information available regarding this patient. 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 on file Not on file Last Filed Vital Signs Vital Sign Reading Time Taken Comments Blood Pressure 125/80 02/17/2019 3:01 PM HEAD WOOD GRINDER Pulse 60 02/17/2019 3:13 PM HEAD WOOD GRINDER Temperature 36.4 C (97.5 F) 02/17/2019 10:13 AM HEAD WOOD GRINDER Respiratory Rate 16 02/17/2019 3:13 PM HEAD WOOD GRINDER Oxygen Saturation 99% 02/17/2019 3:13 PM HEAD WOOD GRINDER Inhaled Oxygen Concentration - - Weight 90.7 kg (200 lb) 02/17/2019 10:13 AM HEAD WOOD GRINDER Height 157.5 cm (5' 2) 02/17/2019 10:13 AM HEAD WOOD GRINDER Body Mass Index 36.58 02/17/2019 10:13 AM HEAD WOOD GRINDER Plan of Treatment Health Maintenance Due Date [...] 04/27/2015 ZOSTER VACCINE (1 of 2) 04/27/2015 DEPRESSION SCREENING 02/26/2024 COVID-19 VACCINE (1 - 2024- season) 2024 INFLUENZA VACCINE (#1) 2024 9, 12/26/2017, 11/27/2017, [...] ENDOSCOPY, COLON, SCREENING Routine 12/30/2014 2:52 PM HEAD WOOD GRINDER from Last 3 Months or Most Recently Relevant to Health Maintenance Results * ENDOSCOPY, COLON, SCREENING (12/30/2014 2:52 PM HEAD WOOD GRINDER) Report Endoscopy POC _ Patient Name: Jose Mckenzie Procedure Date: 12/30/2014 2:52 PM Date of : 1965 Admit Type: Outpatient Age: 49 Gender: Female Attending MD: Ramesh Lujan MD _ Procedure: Colonoscopy Indications: Screening for colorectal malignant neoplasm, Family history of colon cancer in a first-degree relative Providers: Ramesh Lujan MD (Doctor), Elizabeth Whitten RN, Jake Palacios, Marketing Account Manager Referring MD: Helen Gusman MD (Referring MD) [...] pathology results. Procedure Code(s): --- Professional --- 00154, Colonoscopy, flexible; with biopsy, single or multiple --- Technical --- 74749, Colonoscopy, flexible; with biopsy, single or multiple [...] neoplasm of digestive organs CPT copyright 2014 [employer]. All rights reserved. The codes documented in this report are preliminary and upon hostess review may be revised to meet current compliance requirements. Ramesh Lujan MD 12/30/2014 3:19 PM This report has been signed electronically. Number of Addenda: 0 Note Initiated On: 12/30/2014 2:52 PM [facility] ENDOSCOPY 12/30/2014 2:52 PM HEAD WOOD GRINDER us Ramesh Lujan MD GI PROCEDURE ORDERABLES Edited R esult - Final HC ENDOSCOPY from Last 3 Months or Most Recently Relevant to Health Maintenance Insurance [facility] Advance Directives * FULL RESUSCITATION (Latest Code Status on File) Date Activated Date Inactivated Comments 10/19/2010 11:59 PM 10/21/2010 5:46 AM Care Teams Endocrinology Teacher Relationship Specialty Start Date End Date Helen Gusman MD [address] [place] [address] PCP - General Internal Medicine 10/12/13 Carmen Mccallum MD [address] [facility], [address] [place] [phone] Endocrinology 05/17/14 Nathan Romero MD [address] [facility] [address] [place] [address] Cardiovascular Disease 02/14/15
== END 2025-02-10 09:37 | disposition home or self-care (01) ==
PROVIDERS: Visit Provider Urology
DX: N20.0 Calculus of kidney (principal); I10 Essential (primary) hypertension; Z01.818 Encounter for other preprocedural examination
CPT/HCPCS: 36415; 81001; 85610; 85730; 93005

== ENCOUNTER 2025-02-12 02:50 | Day surgery (SDC) | payer BC, SELFPAY ==
--- NOTE | 2025-02-08 06:54 | P.HP_ITS ---
History of Present Illness History of Present Illness Consent: Risks, benefits, and alternatives have been discussed and questions answered. Patient agrees to proceed with procedure. Chief complaint: Right Kidney Stone Narrative: Jose Mckenzie is a 59 year old female, patient of Dr. Kwame reynolds, who has a known history of urolithiasis. In September 2024 imaging demonstrated 2 stones in her right kidney measuring 12 mm and 5 mm and a single 8 mm stone in her left kidney. After. A time she is now electing for right ESWL. She is aware the risk including, but not limited to, need for additional procedures, postoperative hematuria and perinephric hematoma Review of Systems Review of Systems: All systems reviewed & are unremarkable except as noted in HPI and below Exam Const: General: no acute distress Resp: Effort & Inspection: normal respiratory effort GI: Inspection: non-distended GI Palp: No abdominal tenderness and No Guarding due to palpation present (GI) Auscultation: normal bowel sounds Assessment and Plan Assessment and plan (1) Bilateral kidney stones: Code(s): N20.0 - Calculus of kidney Status: Acute Assessment and Plan: * Right ESWL
--- NOTE | 2025-02-09 15:17 | PC.NURSE ---
[facility] has started construction of its new state of the art ER which will open Spring 2026. With this, we anticipate parking may be a challenge for some our surgical patients and families. Parking spaces are limited but are available for all Surgical, obstetrics, and ER patients sharing this lot. If you arrive and find you are having a hard time finding a parking space, please note that we understand the challenges, please drive around the hospital and park near Hospital Entrance 1. When you enter this entrance, you can ask a volunteer to direct or take you back to the surgical waiting area to check in. We appreciate everyone?s understanding of these expected challenges while we build for your future. Report to the Outpatient Waiting Room, entrance under the green pavilion located off [address], at time 0630 on date 02/12/25. Planned Procedure Time: 0830.? Time changes happen often and if your time is changed the preop area will call you the afternoon before. - You and your visitor will be asked to self-screen and do not enter if you have any COVID symptoms. Please call surgeon if you need to reschedule. - A mask is optional within the hospital at this time. Patients may have clear liquids (water, carbonated beverages, clear teas, apple juice) until 3 hours prior to surgery with a maximum of 20 ounces. - No food from midnight until time of surgery and no smoking, or chewing tobacco (or any form of nicotine). No chewing gum, candy or mints. Take only the following medications with a SIP of water on the morning of surgery: AMLODIPINE DO NOT STOP ANY OF YOUR OTHER PRESCRIPTION MEDICATIONS PRIOR TO SURGERY EXCEPT THE FOLLOWING Hold all vitamins and supplements for 3 days per anesthesiologist. Medications to discontinue per physician POTASSIUM Date to take last dose 02/09/25 Please no make-up, nail kosovan, hairspray, perfume, deodorant, or body powder the day of surgery.? No jewelry (including any body piercings) or valuables the day of surgery, leave them at home.? Please take a shower or bath the night before, or the morning of, surgery with an antibacterial soap.? Wear comfortable, loose fitting clothing.? Children are encouraged to wear pajamas. - Jewelry must be removed prior to entering the operating room.? Rings and piercings that are not removed may be cut off. - The hospital will not accept responsibility for valuables.? - Please leave all valuables, including medications, at home the day of surgery. If you are going home after surgery, a licensed port cdl a driver must drive you home.? - NO public transportation without another adult if you receive anesthesia. - We recommend that an adult stay with you for 24 hours following discharge. - We also recommend that you do not drive, make important decision, drink alcoholic beverages, or take any drugs that were not prescribed by your health care provider for at least 24 hours after your discharge time. Follow any additional instructions given to you from your surgeon. Telephone instructions given to MARIXA ZARAGOZA and asked if any additional questions and then verbalized understanding. Patient advised to call surgeon office or pre surgery nurse liaison [phone] if any additional questions.
[2025-02-09 15:45] VITALS: BMI 34.5
[2025-02-12] VITALS (8 sets, daily range): BP systolic 134–152; BP diastolic 64–80; PULSE 62–84; RESP 12–16; TEMP 36.6; O2SAT 97–100
--- NOTE | ~2025-02-12 | XR_ITS ---
EXAM/PROCEDURE: XR abdomen/kub 1V HISTORY: ESWL COMPARISON: None available. TECHNIQUE: KUB FINDINGS: 1.2 cm stone in the right mid to lower pole kidney region probably representing kidney stone unchanged. An 8 mm stone just involving the midpole region also probably represents a right-sided kidney stone. 8 mm stone overlying the lower pole left kidney probably represents kidney stone in this area. Nonspecific bowel gas pattern. Bases are clear. Bones appear intact. IMPRESSION: Bilateral kidney stones as above. Reviewed, dictated and finalized at location A. PORTFOLIO MANAGER
--- OUTSIDE RECORDS SUMMARY | 2025-02-12 02:53 | XMS_ITS | Encounter Summary ---
Author Organization [facility] Address [address] [place] [address] Phone Care Team Providers Care Business Performance Specialist Name Role Phone Dianelys Hernandez MD Unavailable [phone] Dianelys Hernandez MD Primary Care Provider [phone] No, Physician Primary Care Provider Selvin Sims MD Primary Care Provider + No, Physician Primary Care Provider [phone] Selvin Sims MD Primary Care Provider + No, Physician Primary Care Provider Selvin Sims MD Primary Care Provider + Encounter Details Date Type Department Care Team (Late st Contact Info) Description 05/16/2019 Ophth Exam [facility] Medicine Ophthalmology [address] [place] [address] [place] [phone] Kelsie Adam MD [address] [place] [address] Social History Tobacco Use Types Packs/Day Years Used Date Smoking Tobacco: Never Smokeless Tobacco: Never Alcohol Use Standard Drinks/Week Comments No 0 (1 standard drink = 0.6 oz pur e alcohol) PHQ-2 Answer Date Recorded PHQ-2 Score 6 10/15/2018 Comments No Sex and Gender Information Value Date Recorded Sex Assigned at Not on file 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 Unable to assess 05/19/2019 9:53 AM CDT documented as of this encounter Plan of Treatment Scheduled Procedures Name Priority Associated Diagnoses Date/Ti ca COLONOSCOPY Open Access Colon cancer screening COLONOSCOPY [...] Ratio 0.1 0.1 Undilated exam Care Teams Business Performance Specialist Relationship Specialty Start Date End Date Dianelys Hernandez MD [facility] [place] [address] PCP - General Internal Medicine 09/04/18 03/05/23 No, Physician PCP - General 03/06/23 05/29/23 Selvin Sims MD [facility] [address] [place] [address] PCP - General Internal Medicine 05/30/23 09/16/23 No, Physician PCP - General 09/17/23 10/07/23 Selvin Sims MD [facility] [address] [place] [address] PCP - General Internal Medicine 10/08/23 12/18/23 No, Physician PCP - General 12/19/23 12/25/23 Selvin Sims MD [facility]0 [facility] [address] [place] [address] PCP - General Internal Medicine 12/26/23 Dianelys Hernandez MD [address] [place], [place] [address] [place] [address] 09/04/18 documented as of this encounter
--- OUTSIDE RECORDS SUMMARY | 2025-02-12 02:54 | XMS_ITS | Encounter Summary ---
Author Organization [facility] Healthcare Address [address] [place] [address] Care Team Providers Care Chair Springer Name Role Phone Dianelys Hernandez MD Unavailable [phone] Selvin Sims MD Primary Care Provider + Reason for Visit * Reason Onset Date Comments Medical Question/Miscellaneous 01/25/2025 Encounter Details Date Type Department Care Team (Late st Contact Info) Description 01/25/2025 Telephone [facility] Medical Group at the [address] [place] [address] Selvin Sims MD [address] [place] [address] [address] [place], [place] [id number] Medical Question/Miscellaneous Social History Tobacco Use Types [...] staff should administer the PHQ-9) 0 01/11/2025 [facility] of Occupat ional Health - Occupational Stress [...] on file 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 Yes-Action Needed ERCIAL REAL ESTATE PARALEGAL documented in this encounter Plan of Treatment Scheduled Procedures Name Priority Associated Diagnoses Date/Ti nv COLONOSCOPY Open Access Colon cancer screening COLONOSCOPY Screening for colon cancer COLONOSCOPY Annual physical exam Screening for colon cancer documented as of this encounter Visit Diagnoses Not on filedocumented in this encounter Care Teams Chair Springer Relationship Specialty Start Date End Date Selvin Sims MD [address] [place], [place] [address] [place] [address] PCP - General Internal Medicine 12/26/23 Dianelys Hernandez MD [address] [facility] [address] [place] [address] 09/04/18 documented as of this encounter
--- OUTSIDE RECORDS SUMMARY | 2025-02-12 02:54 | XMS_ITS | Clinical Summary ---
Author Organization [facility] Address [address] [place] [address] Care Team Providers Care Clay Washer Name Role Phone Helen Gusman MD Primary Care Provider [phone] Carmen Mccallum MD Unavailable [phone] Nathan Romero MD Unavailable [phone] Source Comments [facility],non-owned Affiliates and Associated Physician Practices is amultiple site organization consisting of ambulatory clinics and hospital sitesin [place], [place], [place] and [place]. This disclosure is being madepursuant to the Care Everywhere program and may not contain all information available regarding this patient. 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 Not on file Last Filed Vital Signs Vital Sign Reading Time Taken Comments Blood Pressure 125/80 02/17/2019 3:01 PM AERONAUTICS TEACHER Pulse 60 02/17/2019 3:13 PM AERONAUTICS TEACHER Temperature 36.4 C (97.5 F) 02/17/2019 10:13 AM AERONAUTICS TEACHER Respiratory Rate 16 02/17/2019 3:13 PM AERONAUTICS TEACHER Oxygen Saturation 99% 02/17/2019 3:13 PM AERONAUTICS TEACHER Inhaled Oxygen Concentration - - Weight 90.7 kg (200 lb) 02/17/2019 10:13 AM AERONAUTICS TEACHER Height 157.5 cm (5' 2) 02/17/2019 10:13 AM AERONAUTICS TEACHER Body Mass Index 36.58 02/17/2019 10:13 AM AERONAUTICS TEACHER Plan of Treatment Health Maintenance Due Date [...] ENDOSCOPY, COLON, SCREENING Routine 12/30/2014 2:52 PM AERONAUTICS TEACHER from Last 3 Months or Most Recently Relevant to Health Maintenance Results * ENDOSCOPY, COLON, SCREENING (12/30/2014 2:52 PM AERONAUTICS TEACHER) Report Endoscopy POC _ Patient Name: Jose Mckenzie Procedure Date: 12/30/2014 2:52 PM Date of : 1965 Admit Type: Outpatient Age: 49 Gender: Female Attending MD: Ramesh Lujan MD _ Procedure: Colonoscopy Indications: Screening for colorectal malignant neoplasm, Family history of colon cancer in a first-degree relative Providers: Ramesh Lujan MD (Doctor), Elizabeth Whitten RN, Jake Palacios, Oil Refinery Process Technician Referring MD: Helen Gusman MD (Referring MD) [...] pathology results. Procedure Code(s): --- Professional --- 01324, Colonoscopy, flexible; with biopsy, single or multiple --- Technical --- 96926, Colonoscopy, flexible; with biopsy, single or multiple [...] neoplasm of digestive organs CPT copyright 2014 [employer] [place] [employer]. All rights reserved. The codes documented in this report are preliminary and upon buffing wheel presser review may be revised to meet current compliance requirements. Ramesh Lujan MD 12/30/2014 3:19 PM This report has been signed electronically. Number of Addenda: 0 Note Initiated On: 12/30/2014 2:52 PM [facility] ENDOSCOPY 12/30/2014 2:52 PM AERONAUTICS TEACHER us Ramesh Lujan MD GI PROCEDURE ORDERABLES Edited R esult - Final HC ENDOSCOPY from Last 3 Months or Most Recently Relevant to Health Maintenance Insurance [facility] Advance Directives * FULL RESUSCITATION (Latest Code Status on File) Date Activated Date Inactivated Comments 10/19/2010 11:59 PM 10/21/2010 5:46 AM Care Teams Clay Washer Relationship Specialty Start Date End Date Helen Gusman MD [address] [place] [address] PCP - General Internal Medicine 10/12/13 Carmen Mccallum MD [address] [facility], [address] [place] [address] Endocrinology 05/17/14 Nathan Romero MD [address] [facility] [address] [place] [address] Cardiovascular Disease 02/14/15
--- OUTSIDE RECORDS SUMMARY | 2025-02-12 02:54 | XMS_ITS | Clinical Summary ---
Author Organization [facility] Address [address] [place] [id number] Care Team Providers Care Bag Bailer Name Role Phone Dianelys Hernandez MD Unavailable [phone] Selvin Sims MD Primary Care Provider + Allergies Active Allergy Reactions Criticality Noted Date Comments Zf-Os-Raoaat/Nv-Idquju-Bofyyxf Morphine Rash Medium 03/11/2013 Rash Oxaprozin Rash [...] 02/07/2023 Assessment & Plan (02/07/2023 9:39 AM WATER PUMP INSTALLER): Started over the last weekend She has [...] 04/04/2021 Assessment & Plan (04/04/2021 1:14 PM WATER PUMP INSTALLER): She has been referred to ortho Symptoms [...] exercise. Assessment & Plan (02/07/2023 8:50 AM WATER PUMP INSTALLER): Encouraged healthy diet and exercise through low [...] exercise. Assessment & Plan (04/04/2021 1:14 PM WATER PUMP INSTALLER): Encouraged healthy diet and exercise through low [...] gastroenteritis or colitis. Need to evaluate for civil laboratory technician etiology and recommend that she see her senior air director Migraine without aura and wi thout status migrainosus, not intractable 01/15/2020 Papilledema 09/14/2019 Pseudotumor cerebri 07/09/2019 Assessment & Plan (01/11/2025 9:58 AM WATER PUMP INSTALLER): Orders: Ambulatory referral to Ophthalmology; Future Assessment & Plan (01/13/2021 10:14 AM WATER PUMP INSTALLER): Doing well. No active edema today. OCT [...] evaluation. She initially presented to her local [facility] in April 2019 due to headaches, TVOs and blurry vision, without pulsatile tinnitus or diplopia. She was then sent to the [facility] ED due to disc edema OS>>OD noted by her local Monomer Purification Operator. In the ED, MRI/MRV Brain and Orbits [...] Central vision intact, no APD (checked by gis technician, patient dilated when I saw her). [...] vitamin-D Assessment & Plan (01/02/2019 11:03 AM WATER PUMP INSTALLER): The results from your labs show low Vitamin D levels. Please also increase foods rich in vitamin D in your diet such as milk, almond milk, cheese, yogurt, salmon and mushrooms. Please begin taking an over the counter vitamin D 2,000 iu supplement daily. 10-15 minutes of sunlight daily also aids in vitamin D production. Hypokalemia 01/02/2019 Assessment & Plan (01/11/2025 9:58 AM WATER PUMP INSTALLER): Orders: potassium chloride ER (KLOR-CON) 10 mEq [...] 2019 Assessment & Plan (01/02/2019 10:59 AM WATER PUMP INSTALLER): Will recheck level today Hypertension, essential 01/02/2019 Assessment & Plan (01/11/2025 9:58 AM WATER PUMP INSTALLER): Orders: amLODIPine (NORVASC) 10 mg tablet; Take [...] medications. Assessment & Plan (02/07/2023 1:11 PM WATER PUMP INSTALLER): On diamox 500 mg once daily, amlodipine [...] mo Assessment & Plan (01/25/2022 9:26 AM WATER PUMP INSTALLER): On diamox 500 mg now once daily, [...] appointment Assessment & Plan (04/04/2021 1:00 PM WATER PUMP INSTALLER): On diamox 500 mg BID, amlodipine 10 [...] visit Assessment & Plan (03/22/2020 4:41 PM WATER PUMP INSTALLER): Hypertension has improved with lifestyle changes and [...] mo Assessment & Plan (01/02/2019 11:02 AM WATER PUMP INSTALLER): Hypertension is improving with treatment Continue current treatment regimen Dietary sodium restriction Weight loss Regular aerobic exercise Continue current medications Blood pressure will be reassessed at the next regular appointment History of hysterectomy 03/03/2018 Assessment & Plan (03/03/2018 10:08 AM WATER PUMP INSTALLER): Dr. Elizabeth Nicholson is her OBGYN and she sees her bi-yearly. Chronic left hip pain 03/03/2018 Assessment & Plan (04/04/2021 1:01 PM WATER PUMP INSTALLER): She has been referred to ortho Currently, [...] ortho Assessment & Plan (03/03/2018 11:10 AM WATER PUMP INSTALLER): X-ray ordered today Referral to ortho Mixed hyperlipidemia 03/03/2018 Assessment & Plan (01/11/2025 9:58 AM WATER PUMP INSTALLER): Orders: simvastatin (ZOCOR) 20 mg tablet; Take 1 tablet (20 mg total) by mouth nightly Assessment & Plan (06/17/2024 7:59 AM CDT): Chronic, stable Continue simvastatin Assessment & Plan (02/07/2023 8:52 AM WATER PUMP INSTALLER): On simvastatin 20 mg daily Recommend low [...] mo Assessment & Plan (04/04/2021 1:00 PM WATER PUMP INSTALLER): On simvastatin 20 mg daily Recommend low [...] continued Assessment & Plan (03/22/2020 4:40 PM WATER PUMP INSTALLER): Lipids have improved with lifestyle changes and medication Continue low fat diet Current medication will be continued Will reassess at the next office visit Assessment & Plan (01/08/2020 12:59 PM WATER PUMP INSTALLER): Lipids have improved with lifestyle changes and [...] mo Assessment & Plan (03/03/2018 11:10 AM WATER PUMP INSTALLER): Lipid profile labs ordered today Thyroid nodule [...] 024 Assessment & Plan (02/07/2023 8:50 AM WATER PUMP INSTALLER): Encourage monthly self breast exams, every 6 [...] appointment Assessment & Plan (01/08/2020 12:58 PM WATER PUMP INSTALLER): BP has been well controlled on the current medication Blood Pressure Follow-up: Lifestyle modifications education provided on sodium reduction, increase physical activity and weight reduction Current medication will be continued. Will reassess in 4 months BMI 31.0-31.9,adult 03/03/2018 12/26/19 24 Assessment & Plan (01/26/2022 6:22 AM WATER PUMP INSTALLER): Encouraged healthy diet and exercise through low [...] exercise. Assessment & Plan (01/02/2019 11:00 AM WATER PUMP INSTALLER): Encouraged healthy diet and exercise through low sodium, low carbohydrate diet, with exercise. Assessment & Plan (03/03/2018 11:19 AM WATER PUMP INSTALLER): Discussed the mediterranean diet Discussed increasing water intake Recommended increasing physical activity, vegetables, and fruit intake Encounters Date Type Department Care Team Description 02/05/2025 Telephone [facility] at the [address] [place] [phone] Selvin Sims MD Medical Question/Miscellaneous 01/25/2025 Telephone [facility] at the [address] [phone] Selvin Sims MD Medical Question/Miscellaneous 01/14/2025 Telephone [facility] Medicine Ophthalmology [address] [place] [id number] Frank Ogden MD New pt scheduled 01/11/2025 9:30 AM WATER PUMP INSTALLER Office Visit [facility] at the [address] [phone] Selvin Sims MD Annual visit for general adult medical examination without abnormal findings (Primary Dx); Sleep disorder; Bilateral leg pain; Pseudotumor cerebri; Hypertension, essential; Hypokalemia; Mixed hyperlipidemia 12/10/2024 12:55 PM CDT [facility] [address] [place] [address] Annual visit for general adult medical examination without abnormal findings; Routine screening for STI (sexually transmitted infection) 12/07/2024 Telephone [facility] at the [address] [phone] Selvin Sims MD Medical Question/Miscellaneous 11/26/2024 Telephone [facility] at the [address] [phone] Selvin Sims MD Medical Question/Miscellaneous [...] staff should administer the PHQ-9) 0 01/11/2025 [facility] - Occupational Stress [...] on file Legal Sex Female 7:21 PM WATER PUMP INSTALLER Gender Identity Not on file Sexual Orientation [...] Comments Blood Pressure 124/80 01/11/2025 9:26 AM WATER PUMP INSTALLER Pulse 76 01/11/2025 9:26 AM WATER PUMP INSTALLER Temperature 36.3 C (97.3 F) 01/08/2024 1:41 PM WATER PUMP INSTALLER Respiratory Rate 16 09/21/2024 8:44 AM CDT Oxygen Saturation 97% 01/11/2025 9:26 AM WATER PUMP INSTALLER Inhaled Oxygen Concentration - - Weight 88.5 kg (195 lb) 01/11/2025 9:26 AM WATER PUMP INSTALLER Height 157.5 cm (5' 2) 01/11/2025 9:26 AM WATER PUMP INSTALLER Body Mass Index 35.67 01/11/2025 9:26 AM WATER PUMP INSTALLER Plan of Treatment Scheduled Procedures Name Priority [...] was last reviewed 2020. Testing performed by: [facility], [address] [place] [address]., [id number] Blood 12/10/2024 1:17 PM CDT 12/10/2024 4:20 PM CDT Selvin Sims MD LAB BLOOD ORDERABLES [facility] al Result BARTWCL [address] [facility] Department [place] [address] * HIV 1/2 Antibody plus [...] GENER AL ORDERABLES Final Result BARTROBBY [address] [facility] [place] [address] * CBC without differential (12/10/2024 1:17 PM CDT) WBC 4.14 3.80 - 9.90 K/cumm Comment:Testing performed by : [address] [address] Hgb 13.5 11.9 - 15.5 g/dL NEAL Comment:Testing performed by : [address] [address] Hct 40.9 35.6 - 45.5 % NEAL Comment:Testing performed by : [address] [address] Plt 311 150 - 400 K/cumm NEAL Comment:Testing performed by : [address] [address] MPV 10.1 9.1 - 12.3 fL NEAL Comment:Testing performed by : [address] [address] RBC 4.45 3.90 - 5.20 M/cumm NEAL Comment:Testing performed by : [address] [address] MCV 91.9 81.3 - 96.4 fL NEAL Comment:Testing performed by : [address] [address] MCH 30.3 27.1 - 33.3 pg NEAL Comment:Testing performed by : [address] [address] MCHC 33.0 32.3 - 35.7 g/dL NEAL Comment:Testing performed by : [address] [address] RDW CV 13.0 11.1 - 14.9 % NEAL Comment:Testing performed by : [address] [address] RDW SD 43.5 35.7 - 48.1 fL NEAL HURT Comment:Testing performed by : [address] [address] NRBC abs 0.00 0.00 - 0.01 K/cumm NEAL HURT Comment:Testing performed by : [address] [address] Blood 12/10/2024 1:17 PM CDT 12/10/2024 4:19 PM CDT Selvin Sims MD LAB BLOOD ORDERABLES Fin al Result Performing Organization Address [facility] de Phone Number [address] [place] [address] * Hemoglobin A1c (12/10/2024 1:17 PM CDT) [facility] Hgb A1C 5.4 4.0 - 5.6 % Comment:Testing performed by : [address] [address] Estimated Average Glucose 108 mg/dL NEAL Comment: The ADA recommends reporting an estimated Average Glucose (eAG) with all Hemoglobin A1c results using the equation derived from a study of 507 normal and diabetic adults. Minority populations were underrepresented and children were not included. (Diabetes Care 31:4774-7491, 2008). The eAG is not equivalent to a fasting glucose. Testing performed by: [address] [address] Blood 12/10/2024 1:17 PM CDT 12/10/2024 4:19 PM CDT Selvin Sims MD LAB BLOOD ORDERABLES Fin al Result Performing Organization Address [facility] de Phone Number [address] [address] * Lipid panel (12/10/2024 1:17 PM CDT) [...] last revised on 2017. Testing performed by: [address] [address] Triglycerides 82 <=149 mg/dL NEAL Comment: Interpretive [...] last revised on 2017. Testing performed by: [address] [address] HDL 51 >=40 mg/dL NEAL Comment: Interpretive [...] last revised on 2017. Testing performed by: [address] [address] LDL, calculated 102 <=129 mg/dL NEAL Comment: [...] last revised on 2023. Testing performed by: [address] [address] Non-HDL Cholesterol 117 mg/dL NEAL Comment: Interpretive [...] last revised on 2017. Testing performed by: [address] [address] Chol/HDL ratio 3 NEAL Comment:Testing performed by : [address] [address] Blood 12/10/2024 1:17 PM CDT 12/10/2024 4:20 PM CDT Selvin Sims MD LAB BLOOD ORDERABLES Fin al Result NEAL [address] [facility] Department [place] [address] * (ABNORMAL) Comprehensive metabolic panel (12/10/2024 1:17 PM CDT) Sodium 141 135 - 145 mmol/L Comment:Testing performed by : [address] [address] Potassium, pl 3.4 3.3 - 4.9 mmol/L NEAL Comment:Testing performed by : [address] [address] Chloride 110 97 - 110 mmol/L NEAL Comment:Testing performed by : [address] [address] CO2 21(L) 22 - 32 mmol/L NEAL Comment:Testing performed by : [address] [address] Anion gap 10 2 - 15 mmol/L NEAL Comment:Testing performed by : [address] [address] BUN 9 6 - 25 mg/dL NEAL Comment:Testing performed by : [address] [address] Creatinine 0.75 0.60 - 1.10 mg/dL NEAL Comment:Testing performed by : [address] [address] Glucose 112 70 - 199 mg/dL [facility] Comment: Interpretive Data Fasting glucose >/= 126 [...] was last revised 2022. Testing performed by: [address] [address] Calcium 9.7 8.5 - 10.3 mg/dL NEAL Comment:Testing performed by : [address] [address] Bilirubin, total 0.4 0.1 - 1.2 mg/dL NEAL Comment:Testing performed by : [address] [address] Protein, pl 7.1 6.5 - 8.5 g/dL NEAL Comment:Testing performed by : [address] [address] Albumin 4.4 3.5 - 5.0 g/dL NEAL Comment:Testing performed by : [address] [address] Alk phos 117 40 - 130 Units/L NEAL Comment:Testing performed by : [address] [address] ALT <5(L) 7 - 45 Units/L NEAL Comment:Testing performed by : [address] [address] AST 16 10 - 45 Units/L NEAL Comment:Testing performed by : [address] [address] Blood 12/10/2024 1:17 PM CDT 12/10/2024 4:20 PM CDT Selvin Sims MD LAB BLOOD ORDERABLES [facility] al Result Performing Organization Address City/State/[facility] Co de Phone Number NEAL [address] [facility] [place] [address] * Screening Mammogram Bilateral W Magan (06/06/2024 7:23 AM CDT) Anatomical Region Laterality Modality Breast Bilateral Mammography Narrative 06/08/2024 1:53 PM CDT Mammogram Technique: Bilateral Digital Breast Tomosynthesis, Bilateral C-view 2D Screening mammogram. Views obtained: bilateral craniocaudal and bilateral mediolateral oblique. Computer Aided Detection was performed. Mammogram Findings: The present examination has been compared to prior imaging studies performed at [facility] on 02/16/2021, 02/22/2022 and 02/28/2023. There are [...] compared to prior imaging studies performed at [facility] on 02/16/2021, 02/22/2022 and 02/28/2023. There are [...] Gender: Female Attending MD: Harley CanalesD. Room: [facility] ENDOSCOPY ROOM 4 Note Status: Finalized [...] was passed under direct vision.The PCF [id number] endoscope was introduced through the anus and advanced to the terminal ileum. The colonoscopy was performed without difficulty. The patient tolerated the procedure well. The qualityof the bowel preparation was evaluated using the BBPS (Scott Bowel Preparation Scale) with scores of:Right Colon [...] results. - Repeat colonoscopy in 7-10 years [facility]. Attending Participation: I personally performed the entire procedure. Electronically signed by Odessa Cage MD Odessa Cage M.D. 09/27/2023 12:01:55 PM . Number of Addenda: 0 Note Initiated On: 09/27/2023 11:16 AM Odessa Cage MD ENDOSCOPY PROCEDURES Final Result from Last 3 Months or Most Recently Relevant to Health Maintenance Insurance [employer] O[employer] Advance Directives For more information, please contact: [phone] Documents on File Type Date Recorded Patient Outside Repairer Special Expl anation ADVANCE DIRECTIVE 10/12/2019 5:55 PM * Full Code (Latest Code Status on File) Date Activated Date Inactivated Comments 09/27/2023 10:19 AM 09/27/2023 4:59 PM * Full Code Date Activated Date Inactivated Comments 01/27/2021 2:49 PM 01/27/2021 8:55 PM Care Teams Bag Bailer Relationship Specialty Start Date End Date Selvin Sims MD [address] [place], [place] [address]RE[address] [place] [address] PCP - General Internal Medicine 12/26/23 Dianelys Hernandez MD [facility] [place] [address] [place] [address] 09/04/18
--- OUTSIDE RECORDS SUMMARY | 2025-02-12 02:54 | XMS_ITS | Clinical Summary ---
Author Organization [facility] Address [address] [place] [address] Care Team Providers Care Senior Training And Development Rep Name Role Phone Dianelys Hernandez MD Primary [...] mouth nightly. 02/09/2021 Active vitamin D2, ergocalciferol, [address] UNITS capsule Take 50,000 Units by mouth [...] patient's age to complete this topic Insurance [facility] Care Teams Senior Training And Development Rep Relationship Specialty Start Date End Date Dianelys Hernandez MD PCP - General INTERNAL MEDICINE 03/07/21
--- NOTE | 2025-02-12 06:27 | WPDHPUPDATE1 ---
History and Physical Update Update Date/Time: 02/12/25 06:27 History and Physical has been reviewed, including an updated exam of the patient. There are NO changes in the patient's condition. Risks, benefits, and alternatives have been discussed and questions answered. Patient agrees to proceed with procedure.
[2025-02-12] MEDS: LACTATED RINGERS 1,000 ML 30 ML IV CONT (07:10)
--- NOTE | 2025-02-12 08:17 | WPDANESEPPF ---
Anes - Initial Pre Proc Eval Procedure: Operation Date: 02/12/25 08:30 Proposed Procedures p Right Extracorporeal Shock Wave Lithotripsy - Magdiel Keita MD Date/Time: 02/12/25 08:17 Surgeon: Magdiel Keita MD Pre Op Diagnosis: Right Kidney Stone Patient Data Age: 59 Gender: F Height: 1.57 m Weight: 88.4 kg Last Vital Signs Temp 97.9 F 02/12/25 06:45 Pulse 72 02/12/25 06:45 Resp 16 02/12/25 06:45 BP 142/80 H 02/12/25 06:45 Pulse Ox 100 02/12/25 06:45 O2 Del Method Room Air 02/12/25 06:45 Allergies Allergy/AdvReac Type Severity Reaction Status Date / Time No Known Allergies Allergy Verified 02/12/25 07:01 Home Medications ?Medication ?Instructions ?Recorded ?Confirmed ?Type acetazolamide 500 mg 500 mg PO DAILY 02/09/25 02/12/25 History capsule,extended release amlodipine 10 mg tablet 10 mg PO DAILY 02/09/25 02/12/25 History ergocalciferol (vitamin D2) 1,250 50,000 unit PO DAILY 02/09/25 02/09/25 History mcg (50,000 unit) capsule (Vitamin D2) irbesartan 300 mg tablet (Avapro) 300 mg PO DAILY 02/09/25 02/12/25 History potassium 99 mg tablet 99 mg PO DAILY 02/09/25 02/09/25 History simvastatin 20 mg tablet 20 mg PO DAILY 02/09/25 02/12/25 History Patient hx anesthesia problems: none Family hx anesthesia problems: none Results Review: All pre-operative results and documents have been reviewed as part of the pre-operative evaluation. COUNT INCLUDES THE [facility] Social History Social History Smoking status: Never smoker Living arrangements: alone Spiritual care concerns: No Anes - Eval Final PreProcedure Day of Procedure 02/12/25 08:17 Patient weight: obese Lungs: normal air movement Airway: Mallampati scale class II and special considerations (Missing middle lower teeth. ) Neurological: alert and oriented Last oral intake: >/= 8 hours ASA classification: III Emergent: no Anesthetic plan: proceed Anesthesia type and monitoring: general LMA and standard monitoring Results Review: All pre-operative results and documents have been reviewed as part of the pre-operative evaluation. HTN, hyperlipidemia, pt states she can walk short distances, no cp or sob. Informed Consent: The patient's anesthetic plan and its attendant risks and benefits were discussed with the patient/family/POA. Questions were solicited and answers provided to the satisfaction of the patient/family/POA.
[2025-02-12] MEDS: ceFAZolin 2 GM in SODIUM CHLORIDE 0.9% IV 50 ML 100 ML IVPB (08:29)
--- NOTE | 2025-02-12 09:21 | P.OP_ITS ---
Procedure Note - Detailed Date of Procedure 02/12/25 Pre-op Diagnosis Right Kidney Stones Post-op Diagnosis Same Procedure Performed Right ESWL Surgeon Magdiel Keita MD Anesthesia General Findings 8mm and 4-5mm right renal stones Description of Procedure The patient was brought to the operative suite where she was placed in the frog- legged position on the Dornier lithotripter table. Flexible cystoscopy was undertaken with a 16F flexible cystoscopy. Her urethra and bladder neck were endoscopically normal. The bladder mucosa was normal and there was a single, orthotopic ureteral orifice bilaterally. A 0.035 glidewire was advanced into the right renal pelvis under fluoroscopy. A 4.8F J-J ureteral stent was positioned with the proximal coil in the renal pelvis and the distal coil in the bladder. The patient was then repositioned in the supine position and the focal point of the lithotriptor was placed at the larger stones in her right kidney. It appeared to fracture but not until later in procedure so we did not treat the smaller stone. A total of 2500 shocks were delivered at a power setting up to . After 300 shocks at a power of 1, a three minute pause was inserted. There appeared to be good fragmentation of the stone. The patient tolerated the procedure well and was taken to the recovery room in good condition. Drains No Packing No Pathology None sent
[2025-02-12] MEDS: KETOROLAC 30 MG/ML VIAL (*BKC) IV PUSH (09:41)
== END 2025-02-12 11:33 | disposition home or self-care (01) ==
PROVIDERS: Visit Provider Urology
PROC: (CPT 50590; principal; 2025-02-12 08:30)
DX: N20.0 Calculus of kidney (principal); I10 Essential (primary) hypertension; E78.5 Hyperlipidemia, unspecified; E66.9 Obesity, unspecified; Z68.35 Body mass index [BMI] 35.0-35.9, adult
CPT/HCPCS: 50590; 74018; J0690; C1769; C2617; J1100; J1885; J2405; J2704; J7120